=== PATIENT | female | born 1965 | race Caucasian/White ===

== ENCOUNTER → 2016-06-17 | Outpatient (CLI) | payer OTHER ==
[~2016-06-17] MED LIST: ADV500INH INH; ALBU17IN INH; CIPR500T89 PO; CLAR1TAB2 PO; CYCL10TA PO; FLAG500T PO; FLUC10TA PO; OXYC10TA12 PO; PROT1TAB2 PO; SING10TA32 PO; TYLE325T5 PO; birth control pills PO; nasocort
== END ==
LOC: M HL 08:38
PROVIDERS: ATTEND Family Medicine
DX: R73.01 Impaired fasting glucose (principal)

== ENCOUNTER → 2016-07-03 | Outpatient (REF) | payer OTHER ==
[2016-07-03 12:02] LABS: BASO % 0.4 % (0.0-1.0); EOS # 0.2 K/mm3 (0.0-0.50); LARGE UNSTAINED CELL # 0.1 K/mm3 (0.0-0.4); LARGE UNSTAINED CELL % 1.3 % (0.0-4.0); LYMPH # 1.1 K/mm3 (1.5-4.5); LYMPH % 12.5 % (24.0-44.0); MEAN CORPUSCULAR HEMOGLOBIN 30.6 pg (27.0-33.0); MEAN CORPUSCULAR HGB CONC 33.8 g/dl (32.0-36.5); MEAN CORPUSCULAR VOLUME 90.5 fl (80.0-96.0); MONO # 0.5 K/mm3 (0.0-0.8); MONO % 5.6 % (0.0-5.0); NEUTROPHILS # 6.7 K/mm3 (1.8-7.7); NEUTROPHILS % 78.2 % (36.0-66.0); PLATELET COUNT, AUTOMATED 333 k/mm3 (150-450); WHITE BLOOD COUNT 8.5 K/mm3 (4.0-10.0)
[2016-07-03 12:17] LABS: ALBUMIN 3.5 GM/DL (3.2-5.2); ALBUMIN/GLOBULIN RATIO 1.13 (1.00-1.93); ALKALINE PHOSPHATASE 83 U/L (45-117); ALT/SGPT 22 U/L (12-78); ANION GAP 9 MEQ/L (8-16); AST/SGOT 14 U/L (15-37); BILIRUBIN,TOTAL 0.3 MG/DL (0.2-1.0); BLOOD UREA NITROGEN 15 MG/DL (7-18); CALCIUM LEVEL 9.1 MG/DL (8.5-10.1); CARBON DIOXIDE LEVEL 26 MEQ/L (21-32); CHLORIDE LEVEL 106 MEQ/L (98-107); CREATININE FOR GFR 0.68 MG/DL (0.55-1.02); GLOMERULAR FILTRATION RATE > 60.0 (>51); GLUCOSE, FASTING 102 MG/DL (70-105); SODIUM LEVEL 141 MEQ/L (136-145); TOTAL PROTEIN 6.6 GM/DL (6.4-8.2)
== END ==
LOC: M SFHCPLAZ 09:37
PROVIDERS: ATTEND Family Medicine
DX: E78.2 Mixed hyperlipidemia (principal); R73.01 Impaired fasting glucose

== ENCOUNTER → 2016-07-06 | Outpatient (CLI) | payer OTHER | LOC: M HL 08:43 | PROVIDERS: ATTEND Family Medicine | DX: R73.01 Impaired fasting glucose (principal) ==

== ENCOUNTER → 2016-07-22 | Outpatient (REF) | payer OTHER ==
[2016-07-22 11:53] LABS: BASO % 0.2 % (0.0-1.0); EOS # 0.1 K/mm3 (0.0-0.50); EOS % 0.3 % (0.0-3.0); LARGE UNSTAINED CELL # 0.1 K/mm3 (0.0-0.4); LARGE UNSTAINED CELL % 0.4 % (0.0-4.0); LYMPH # 1.7 K/mm3 (1.5-4.5); LYMPH % 7.8 % (24.0-44.0); MEAN CORPUSCULAR HEMOGLOBIN 29.7 pg (27.0-33.0); MEAN CORPUSCULAR HGB CONC 32.4 g/dl (32.0-36.5); MEAN CORPUSCULAR VOLUME 91.4 fl (80.0-96.0); MONO # 0.7 K/mm3 (0.0-0.8); MONO % 3.1 % (0.0-5.0); NEUTROPHILS # 18.7 K/mm3 (1.8-7.7); NEUTROPHILS % 88.1 % (36.0-66.0); PLATELET COUNT, AUTOMATED 333 k/mm3 (150-450); WHITE BLOOD COUNT 21.2 K/mm3 (4.0-10.0)
[2016-07-22 12:19] LABS: ALBUMIN 3.4 GM/DL (3.2-5.2); ALBUMIN/GLOBULIN RATIO 1.21 (1.00-1.93); ALKALINE PHOSPHATASE 72 U/L (45-117); ALT/SGPT 21 U/L (12-78); ANION GAP 12 MEQ/L (8-16); AST/SGOT 8 U/L (15-37); BILIRUBIN,TOTAL 0.7 MG/DL (0.2-1.0); BLOOD UREA NITROGEN 18 MG/DL (7-18); CARBON DIOXIDE LEVEL 25 MEQ/L (21-32); CHLORIDE LEVEL 104 MEQ/L (98-107); CREATININE FOR GFR 0.79 MG/DL (0.55-1.02); GLOMERULAR FILTRATION RATE > 60.0 (>51); GLUCOSE, FASTING 144 MG/DL (70-105); POTASSIUM SERUM 3.8 MEQ/L (3.5-5.1); SODIUM LEVEL 141 MEQ/L (136-145); TOTAL PROTEIN 6.2 GM/DL (6.4-8.2)
== END ==
LOC: M SFHCPLAZ 10:25
PROVIDERS: ATTEND Nurse Practitioner Family
DX: K57.92 Diverticulitis of intestine, part unspecified, without perforation or abscess without bleeding (principal)

== ENCOUNTER → 2016-07-22 | Outpatient (CLI) | payer OTHER ==
--- NOTE | 2016-07-22 12:55 | REP ---
CT abdomen pelvis without IV or bowel contrast: Comparison is 12/30/2014. There are multiple diverticula in the descending colon and sigmoid colon. There is pericolonic inflammation of the sigmoid colon compatible with diverticulitis. This is in a similar location as on the comparison study. There is no pericolonic abscess. There is no pneumoperitoneum. There is no ascites. The visualized lung delatorre are unremarkable. The unenhanced hepatic parenchyma, gallbladder, pancreas, spleen, adrenals and kidneys are unremarkable except for a nonobstructive calculus in the lower pole of the right kidney, unchanged. The abdominal aorta, bowel and mesentery are otherwise unremarkable. Pelvis: The uterus and adnexa are unremarkable except for inflammatory changes in the sigmoid colon. There is a pessary in the vaginal vault. The bladder is unremarkable. There is no pelvic adenopathy or ascites. Impression: Sigmoid colon diverticulitis without abscess, no pneumoperitoneum or ascites. There is a nonobstructive calculus in the right kidney. There is a pessary in the vaginal vault. Signed by Olman Ruano MD 07/22/2016 12:46 P
== END ==
LOC: M RAD 11:51
PROVIDERS: ATTEND Nurse Practitioner Family
DX: R10.9 Unspecified abdominal pain (principal)

== ENCOUNTER → 2016-07-23 | Outpatient (REF) | payer OTHER ==
[2016-07-23 16:03] LABS: EOS % 0.2 % (0.0-3.0); LARGE UNSTAINED CELL # 0.1 K/mm3 (0.0-0.4); LARGE UNSTAINED CELL % 0.6 % (0.0-4.0); LYMPH # 0.5 K/mm3 (1.5-4.5); MEAN CORPUSCULAR HEMOGLOBIN 29.9 pg (27.0-33.0); MEAN CORPUSCULAR HGB CONC 32.3 g/dl (32.0-36.5); MEAN CORPUSCULAR VOLUME 92.5 fl (80.0-96.0); MONO # 0.4 K/mm3 (0.0-0.8); MONO % 2.6 % (0.0-5.0); NEUTROPHILS # 15.1 K/mm3 (1.8-7.7); NEUTROPHILS % 93.5 % (36.0-66.0); PLATELET COUNT, AUTOMATED 306 k/mm3 (150-450); RED CELL DISTRIBUTION WIDTH 13.2 % (11.5-14.5); WHITE BLOOD COUNT 16.2 K/mm3 (4.0-10.0)
== END ==
LOC: M SFHCPLAZ 14:21
PROVIDERS: ATTEND Nurse Practitioner Family
DX: K57.92 Diverticulitis of intestine, part unspecified, without perforation or abscess without bleeding (principal)

== ENCOUNTER 2016-07-29 15:17 | Emergency (ER) | payer OTHER ==
[~2016-07-29] VITALS: Ht 157.5 cm; Wt 103.4 kg
[~2016-07-29 15:17] MED LIST changes: -AMMO12CR4 EXT; -BREO1INH3 INH; -COLA100C PO; -DRIS50002 PO; -JOLETAB PO; -METF500T4 PO; -NASA1SPR; -VICKLIQ PO; -[UNRECOGNIZED DRUG - CODE] PO
[2016-07-29] MEDS ORDERED: GASTROGRAFIN SOLUTION 30ML (Q9963) As Ordered ONE (16:45)
[2016-07-29] MEDS ORDERED: ONDANSETRON 4MG/2ML VIAL (J2405) As Ordered ONE (16:45)
[2016-07-29 17:14] LABS: BASO % 0.2 % (0.0-1.0); EOS % 0.4 % (0.0-3.0); LARGE UNSTAINED CELL # 0.1 K/mm3 (0.0-0.4); LARGE UNSTAINED CELL % 0.7 % (0.0-4.0); LYMPH # 0.5 K/mm3 (1.5-4.5); LYMPH % 4.4 % (24.0-44.0); MEAN CORPUSCULAR HEMOGLOBIN 29.9 pg (27.0-33.0); MEAN CORPUSCULAR HGB CONC 32.5 g/dl (32.0-36.5); MEAN CORPUSCULAR VOLUME 91.8 fl (80.0-96.0); MONO # 0.2 K/mm3 (0.0-0.8); MONO % 1.8 % (0.0-5.0); NEUTROPHILS # 10.8 K/mm3 (1.8-7.7); NEUTROPHILS % 92.5 % (36.0-66.0); PLATELET COUNT, AUTOMATED 409 k/mm3 (150-450); RED CELL DISTRIBUTION WIDTH 13.2 % (11.5-14.5); WHITE BLOOD COUNT 11.6 K/mm3 (4.0-10.0)
[2016-07-29 17:22] LABS: INR 1.01
[2016-07-29 17:29] LABS: ALBUMIN 3.2 GM/DL (3.2-5.2); ALKALINE PHOSPHATASE 97 U/L (45-117); ALT/SGPT 123 U/L (12-78); AMYLASE 48 U/L (25-115); ANION GAP 7 MEQ/L (8-16); AST/SGOT 95 U/L (15-37); BILIRUBIN,DIRECT 0.1 MG/DL (0.0-0.2); BILIRUBIN,TOTAL 0.2 MG/DL (0.2-1.0); BLOOD UREA NITROGEN 19 MG/DL (7-18); CALCIUM LEVEL 8.7 MG/DL (8.5-10.1); CARBON DIOXIDE LEVEL 28 MEQ/L (21-32); CHLORIDE LEVEL 105 MEQ/L (98-107); CREATININE FOR GFR 0.77 MG/DL (0.55-1.02); GLOMERULAR FILTRATION RATE > 60.0 (>51); GLUCOSE, FASTING 169 MG/DL (70-105); POTASSIUM SERUM 4.2 MEQ/L (3.5-5.1); SODIUM LEVEL 140 MEQ/L (136-145); TOTAL PROTEIN 7.2 GM/DL (6.4-8.2)
[2016-07-29] MEDS ORDERED: DRIS50002 PO (17:51)
[2016-07-29] MEDS ORDERED: METF500T4 PO (17:51)
[2016-07-29] MEDS ORDERED: AMMO12CR4 EXT (17:51)
[2016-07-29] MEDS ORDERED: NASA1SPR (17:51)
[2016-07-29] MEDS ORDERED: VICKLIQ PO (17:51)
[2016-07-29] MEDS ORDERED: [UNRECOGNIZED DRUG - CODE] PO (17:51)
[2016-07-29] MEDS ORDERED: COLA100C PO (17:51)
[2016-07-29] MEDS ORDERED: BREO1INH3 INH (17:51)
[2016-07-29] MEDS ORDERED: JOLETAB PO (17:51)
[2016-07-29] MEDS ORDERED: ISOVUE-370 76% 100ML VIAL (Q9967) As Ordered ONE (18:11)
--- NOTE | 2016-07-29 19:15 | EDDOCDS ---
Physician Documentation [facility] Name: Shea Garcia Age: 51 yrs Sex: Female : 1965 Arrival Date: 07/29/2016 Time: 15:17 Bed 12 Private MD: Get Davies E. Disposition: 07/29/16 19:01 Discharged to Home/Self Care. Impression: Diverticulitis of large intestine with perforation and abscess without bleeding. - Condition is Stable. - Discharge Instructions: Diverticulitis, Peritonitis. - Medication Reconciliation, Local Pharmacy Hours, Work Release Form - 1 day form. - Follow up: Get Davies; When: 1 week; Reason: Recheck today's complaints, Continuance of care. Follow up: Olman Roa DO; When: Tomorrow; Reason: Further diagnostic work-up, Continuance of care. - Problem is an ongoing problem. - Symptoms are unchanged. - Notes: continue present antibiotics return any problems Historical: - Allergies: Dicyclomine; Amoxicillin; Augmentin; - Home Meds: 1. Cipro 500 mg Oral tab 1 tab every 12 hours 10 days, pt is on day 7 of this medication 2. metronidazole 500 mg Oral tab 1 tab 3 times per day - PMHx: Diverticulitis; - PSHx: Bladder suspension; - Social history: Smoking status: Patient states former smoker of tobacco. No barriers to communication noted, The patient speaks fluent Tajik. - Family history: Not pertinent. - : The pt / caregiver states he / she is not on anticoagulants. Home medication list is obtained from the patient. - Exposure Risk Screening:: None identified. PURCHASING/RECEIVING: 07/29 15:29 LMP 07/08/2016 ms18 Vital Signs: 15:19 BP 138 / 87; Pulse 73; Resp 18 S; Temp 97.3(O); Pulse Ox 95% on R/A; Weight 103.42 kg / gr2 228 lbs (R); Height 5 ft. 2 in. (157.48 cm) (R); Pain 2/10; 18:32 BP 128 / 85; Pulse 71; Resp 16; Pulse Ox 98% on R/A; Pain 0/10; ml6 19:11 Temp 97.8(O); tm5 15:19 Body Mass Index 41.70 (103.42 kg, 157.48 cm) gr2 MDM: 16:36 IV Saline Lock ordered. ke 16:36 Undress patient appropriately for examination ordered. ke 16:36 Ondansetron 4 mg IVP once ordered. ke 16:37 Amylase Ordered. EDMS 16:37 Basic Metabolic Profile Ordered. EDMS 16:37 CBC with Diff Ordered. EDMS 16:37 Lipase Ordered. EDMS 16:37 Liver Profile Ordered. EDMS 16:37 Prothrombin Time Profile\E\INR Ordered. EDMS 16:37 CT ABD & PELVIS: IV and Oral Contrast Ordered. EDMS 16:37 NOTHING BY MOUTH+DIET ordered. EDMS 16:39 BED REQUEST+ADM ordered. EDMS 17:29 Financial registration complete. gb 17:32 Basic Metabolic Profile Reviewed. ke 17:32 CBC with Diff Reviewed. ke 17:32 Liver Profile Reviewed. ke 17:32 Amylase Reviewed. ke 17:32 Lipase Reviewed. ke 17:32 Prothrombin Time Profile\E\INR Reviewed. ke 17:37 [facility] Payment Agreement was scanned into [employer] and attached to record. gb Administered Medications: 16:40 Drug: Ondansetron 4 mg [ondansetron HCl 2 mg/mL intravenous solution (2 mL)] Route: ml6 IVP; Site: right antecubital; Signatures: Dispatcher [employer] EDMS Neyda Lopez, Reg Reg gb Roddy Frazier, OPTOMETRIC COORDINATOR OPTOMETRIC COORDINATOR Charisse Pena,RN RN ms18 Valentina Headley,BRENDA RN tm5 Chato Guzman RN ml6 The chart was reviewed and I authenticate all verbal orders and agree with the evaluation and treatment provided.Attachments: 17:37 [facility] Payment Agreement gb MTDD
--- NOTE | 2016-07-29 19:15 | EDDOCDS ---
Nurse's Notes [facility] Name: Shea Garcia Age: 51 yrs Sex: Female : 1965 Arrival Date: 07/29/2016 Time: 15:17 Bed 12 Private MD: Get Davies E. Diagnosis: Diverticulitis of large intestine with perforation and abscess without bleeding Presentation: 07/29 15:22 Presenting complaint: Patient states: that she had a chest xray today and the medical ms18 staff stated that they noticed 3 abnormalities in her bowels. She was told to come straight to the ER because they thought she "perforated bowels". Adult Sepsis Screening: The patient does not have new or worsening altered mentation. Patient's respiratory rate is less than 22. Systolic blood pressure is greater than 100. Patient has a qSOFA score of 0- Negative Sepsis Screen. Suicide/Homicide risk assessment- the patient denies having any suicidal and/or homicidal ideations and does not present with any other emotional, behavioral or mental health complaints. Status: Patient is not a director emergency services or dependent. Transition of care: patient was not received from another setting of care. 15:22 Acuity: SORAIDA Level 3 ms18 15:22 Method Of Arrival: Walkin/Carried/Asstd ms18 Triage Assessment: 15:27 General: Appears in no apparent distress, comfortable, Behavior is appropriate for age, ms18 cooperative. Pain: Location: left low back, right lower quadrant and left lower quadrant Pain currently is 3 out of 10 on a pain scale. HIV screening NA for this visit Offered previously. Neurological: Level of Consciousness is awake, alert, obeys commands, Oriented to person, place, time. Respiratory: Airway is patent Respiratory effort is even, unlabored. GI: Abdomen is obese, Denies diarrhea, nausea, vomiting. Derm: Skin is pink, warm & dry. 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 Cipro 500 mg Oral tab 1 tab every 12 hours 10 days, pt is on day 7 of this medication 2. metronidazole 500 mg Oral tab 1 tab 3 times per day - PMHx: Diverticulitis; - PSHx: Bladder suspension; - Social history: Smoking status: Patient states former smoker of tobacco. No barriers to communication noted, The patient speaks fluent Fijian. - Family history: Not pertinent. - : The pt / caregiver states he / she is not on anticoagulants. Home medication list is obtained from the patient. - Exposure Risk Screening:: None identified. Screenin:33 Screening information is obtained from the patient. Fall risk: No risks identified. ml6 Assistance ADL's: requires no assistance with activities of daily living. Abuse/DV Screen: The patient / caregiver reports he/she is: not in a situation that causes fear, pain or injury. Nutritional screening: No deficits noted. Advance Directives: Currently, there is no health care proxy. home support is adequate. Assessment: 15:30 General: Appears in no apparent distress, comfortable, Behavior is appropriate for age, ml6 cooperative. Pain: Denies pain. Neurological: No deficits noted. Level of Consciousness is awake, alert, Oriented to person, place, time. Cardiovascular: No deficits noted. Capillary refill < 3 seconds is brisk in bilateral fingers toes Heart tones S1 S2 present Edema is absent. Pulses are all present. Respiratory: No deficits noted. Airway is patent Respiratory effort is even, unlabored, Respiratory pattern is regular, symmetrical, Breath sounds are clear bilaterally. GI: No deficits noted. 16:30 Reassessment: Patient appears in no apparent distress at this time. Patient denies pain ml6 at this time. Patient states feeling better. Patient states symptoms have improved. patient denies pain or discomfort. 19:11 Reassessment: Patient appears in no apparent distress at this time. Patient denies pain tm5 at this time. Patient states feeling better. Patient states symptoms have improved. pt asking to speak to the doctor that took care of her, she has more questions about her diagnosis, SUPERVISOR HEADING Karin aware that pt would like to speak to him. Vital Signs: 15:19 BP 138 / 87; Pulse 73; Resp 18 S; Temp 97.3(O); Pulse Ox 95% on R/A; Weight 103.42 kg gr2 (R); Height 5 ft. 2 in. (157.48 cm) (R); Pain 2/10; 18:32 BP 128 / 85; Pulse 71; Resp 16; Pulse Ox 98% on R/A; Pain 0/10; ml6 19:11 Temp 97.8(O); tm5 15:19 Body Mass Index 41.70 (103.42 kg, 157.48 cm) gr2 Vitals: 15:19 Log In Time: July 29, 2016 at 15:19. gr2 ED Course: 15:18 Patient visited by Edgar Quinones. gr2 15:18 Patient moved to Waiting gr2 15:19 Get Davies is Private Physician. gr2 15:21 Patient visited by Edgar Quinones. gr2 15:21 Patient moved to Pre RCE gr2 15:25 Triage Initiated ms18 15:30 Inserted peripheral IV: 18gauge IV in right antecubital area and blood collected. ml6 Patient tolerated the procedure well. Labs drawn. (by ED staff). 16:12 Patient moved to 12 [facility] 16:13 [facility]. ke 16:13 Patient visited by Roddy Frazier FNP. ke 16:13 Patient visited by Roddy Frazier FNP. ke 16:38 Patient visited by Roddy Frazier FNP. ke 17:09 Patient visited by Roddy Frazier FNP. ke 17:32 Patient visited by Roddy Frazier FNP. ke 17:37 [facility] Payment Agreement was scanned into [employer] and attached to record. gb 17:59 Patient visited by Roddy Frazier FNP. ke 18:30 Patient visited by oRddy Frazier FNP. ke 18:33 The patient / caregiver is instructed regarding the plan of care and ED course. ml6 18:59 Patient visited by Roddy Frazier FNP. ke 19:00 Get Davies is Referral Physician. ke 19:00 Olman Roa DO is Referral Physician. ke 19:02 Report received from Guido Ernst RN, assumed care of pt at this time. tm5 19:11 Patient visited by Valentina Headley RN. tm5 19:11 Discontinued lock intact, bleeding controlled, pressure dressing applied, No tm5 redness/swelling at site. No procedures done that require assistance. Administered Medications: 16:40 Drug: Ondansetron 4 mg [ondansetron HCl 2 mg/mL intravenous solution (2 mL)] Route: ml6 IVP; Site: right antecubital; Order Results: Lab Order: Amylase; SPEC'M 07/29/16 16:52 Test: AMYLASE; Value: 48; Range: 25-115; Units: U/L; Status: F Lab Order: Basic Metabolic Profile; SPEC'07/29/16 16:52 Test: GLUCOSE, FASTING; Value: 169; Range: 70-105; Abnormal: Above high normal; Units: MG/DL; Status: F Test: BLOOD UREA NITROGEN; Value: 19; Range: 7-18; Abnormal: Above high normal; Units: MG/DL; Status: F Test: CREATININE FOR GFR; Value: 0.77; Range: 0.55-1.02; Units: MG/DL; Status: F Test: GLOMERULAR FILTRATION RATE; Value: > 60.0; Range: >51; Status: F Test: SODIUM LEVEL; Value: 140; Range: 136-145; Units: MEQ/L; Status: F Test: POTASSIUM SERUM; Value: 4.2; Range: 3.5-5.1; Units: MEQ/L; Status: F Test: CHLORIDE LEVEL; Value: 105; Range: 98-107; Units: MEQ/L; Status: F Test: CARBON DIOXIDE LEVEL; Value: 28; Range: 21-32; Units: MEQ/L; Status: F Test: ANION GAP; Value: 7; Range: 8-16; Abnormal: Below low normal; Units: MEQ/L; Status: F Test: CALCIUM LEVEL; Value: 8.7; Range: 8.5-10.1; Units: MG/DL; Status: F Test Note: ; Units are mL/min/1.73 m2 Chronic Kidney Disease Staging per NKF: Stage I & II GFR >=60 Normal to Mildly Decreased Stage III GFR 30-59 Moderately Decreased Stage IV GFR 15-29 Severely Decreased Stage V GFR <15 Very Little GFR Left ESRD GFR <15 on AMBULANCE MECHANIC Lab Order: CBC with Diff; SPEC'07/29/16 16:52 Test: WHITE BLOOD COUNT; Value: 11.6; Range: 4.0-10.0; Abnormal: Above high normal; Units: K/mm3; Status: F Test: RED BLOOD COUNT; Value: 4.06; Range: 4.00-5.40; Units: M/mm3; Status: F Test: HEMOGLOBIN; Value: 12.1; Range: 12.0-16.0; Units: g/dl; Status: F Test: HEMATOCRIT; Value: 37.2; Range: 36.0-47.0; Units: %; Status: F Test: MEAN CORPUSCULAR VOLUME; Value: 91.8; Range: 80.0-96.0; Units: fl; Status: F Test: MEAN CORPUSCULAR HEMOGLOBIN; Value: 29.9; Range: 27.0-33.0; Units: pg; Status: F Test: MEAN CORPUSCULAR HGB CONC; Value: 32.5; Range: 32.0-36.5; Units: g/dl; Status: F Test: RED CELL DISTRIBUTION WIDTH; Value: 13.2; Range: 11.5-14.5; Units: %; Status: F Test: PLATELET COUNT, AUTOMATED; Value: 409; Range: 150-450; Units: k/mm3; Status: F Test: NEUTROPHILS %; Value: 92.5; Range: 36.0-66.0; Abnormal: Above high normal; Units: %; Status: F Test: LYMPH %; Value: 4.4; Range: 24.0-44.0; Abnormal: Below low normal; Units: %; Status: F Test: MONO %; Value: 1.8; Range: 0.0-5.0; Units: %; Status: F Test: EOS %; Value: 0.4; Range: 0.0-3.0; Units: %; Status: F Test: BASO %; Value: 0.2; Range: 0.0-1.0; Units: %; Status: F Test: LARGE UNSTAINED CELL %; Value: 0.7; Range: 0.0-4.0; Units: %; Status: F Test: NEUTROPHILS #; Value: 10.8; Range: 1.8-7.7; Abnormal: Above high normal; Units: K/mm3; Status: F Test: LYMPH #; Value: 0.5; Range: 1.5-4.5; Abnormal: Below low normal; Units: K/mm3; Status: F Test: MONO #; Value: 0.2; Range: 0.0-0.8; Units: K/mm3; Status: F Test: EOS #; Value: 0.0; Range: 0.0-0.50; Units: K/mm3; Status: F Test: BASO #; Value: 0.0; Range: 0.0-0.2; Units: K/mm3; Status: F Test: LARGE UNSTAINED CELL #; Value: 0.1; Range: 0.0-0.4; Units: K/mm3; Status: F Lab Order: Lipase; [facility] 07/29/16 16:52 Test: LIPASE; Value: 269; Range: 73-393; Units: U/L; Status: F Lab Order: Liver Profile; [facility] 07/29/16 16:52 Test: AST/SGOT; Value: 95; Range: 15-37; Abnormal: Above high normal; Units: U/L; Status: F Test: ALT/SGPT; Value: 123; Range: 12-78; Abnormal: Above high normal; Units: U/L; Status: F Test: ALKALINE PHOSPHATASE; Value: 97; Range: 45-117; Units: U/L; Status: F Test: BILIRUBIN,TOTAL; Value: 0.2; Range: 0.2-1.0; Units: MG/DL; Status: F Test: BILIRUBIN,DIRECT; Value: 0.1; Range: 0.0-0.2; Units: MG/DL; Status: F Test: TOTAL PROTEIN; Value: 7.2; Range: 6.4-8.2; Units: GM/DL; Status: F Test: ALBUMIN; Value: 3.2; Range: 3.2-5.2; Units: GM/DL; Status: F Test: ALBUMIN/GLOBULIN RATIO; Value: 0.80; Range: 1.00-1.93; Abnormal: Below low normal; Status: F Lab Order: Prothrombin Time Profile\\E\\INR; [facility] 07/29/16 16:52 Test: PROTHROMBIN TIME; Value: 13.4; Range: 12.3-14.5; Units: SECONDS; Status: F Test: INR; Value: 1.01; Status: F Test Note: ; THERAPUTIC HUMAN INR VALUES INDICATIONS NORMAL RANGES PROPHYLAXIS/TREATMENT OF: VENOUS THROMBOSIS 2.0-3.0 PULMONARY EMBOLISM 2.0-3.0 PREVENTION OF SYSTEMIC EMBOLISM FROM: TISSUE HEART VALVES 2.0-3.0 ACUTE MYOCARDIAL INFARCTION 2.0-3.0 VALVULAR HEART DISEASE 2.0-3.0 ATRIAL FIBRILLATION 2.0-3.0 MECHANICAL VALVES(HIGH RISK) 2.5-3.5 RECURRENT MYOCARDIAL INFARCTION 2.5-3.5 Outcome: 18:31 CT Study completed. Property :Personal belongings accompany Pt. 6 18:34 Discharge Assessment: patient administered narcotics - no. ml6 19:01 Discharge ordered by Provider. ke 19:11 The following High Risk Discharge criteria are identified: None. Discharged to home tm5 ambulatory, with family. Condition: good Condition: stable Condition: improved. Discharge instructions given to patient, Instructed on discharge instructions, follow up and referral plans. medication usage, Demonstrated understanding of instructions, medications, Pt was receptive of discharge instructions/ teaching. Work note provided to patient. 19:14 Patient left the ED. tm5 Signatures: Janice Suarez, RN RN Neyda Gauthier, Roddy Roper, TAPPER HELPER TAPPER HELPER Chato Merida RN RN ml6 Edgar Quinones 2 Charisse Chatterjee,RN RN ms18 Valentina Headley,RN RN tm5 [facility]
--- NOTE | 2016-07-30 08:21 | REP ---
Clinical: Pneumoperitoneum on x-ray. Comparison: 07/22/2016. Technique: Axial contrast enhanced images from the lung bases to the pubic symphysis using oral and 100 ml Isovue 370 intravenous contrast material with coronal and sagittal re-formations. Findings: Small amount of pneumoperitoneum consistent with perforation is appreciated within the abdomen and pelvis. Inflammatory changes involving the left myranda pelvis include mural thickening and pericolonic stranding of the mid sigmoid colon with evidence for acute diverticulitis as well as a 4.8 cm collection with air-fluid level in the region of the left adnexa inseparable from both the adjacent area of sigmoid diverticulitis as well as left adnexa (images 99 - 125). Differential diagnosis includes perforated sigmoid diverticulitis and/or left tubal ovarian abscess. There is no associated bowel obstruction and the remainder of the small and large bowel is grossly unremarkable. The uterus and right adnexa appear normal. Small amount of fluid extends into the deep pelvis. Liver, spleen, pancreas, gallbladder, bilateral adrenal glands and kidneys are normal. Pelvis again demonstrates inflammatory changes in the left myranda pelvis as described above as well as normal partially collapsed bladder. Pessary in satisfactory position. No significant adenopathy. Musculoskeletal structures are intact. Lung bases are clear. Impression: Pneumoperitoneum with significant inflammatory changes involving the left myranda pelvis as described above. Differential diagnosis includes perforated sigmoid diverticulitis with adjacent abscess collection and/or associated left tubal ovarian abscess. No associated bowel obstruction. Signed by Gerardo Rosenbaum MD 07/30/2016 08:12 A
--- NOTE | 2016-07-30 15:12 | CR ---
DATE OF CONSULTATION: 07/29/2016 CHIEF COMPLAINT: Abnormal chest x-ray. HISTORY OF PRESENT ILLNESS: The patient is a 51-year-old female who came into the emergency room last evening due to having an abnormal chest x-ray. She was diagnosis of diverticulitis about 2 years ago. She has not had any problems since then up until last Wednesday when she went to her doctor and after examination he started her on some Cipro and Flagyl and told her that she probably had a new episode of diverticulitis. She then had a chest x-ray done yesterday, which showed free air underneath the diaphragm so she was called by her doctor and told to come straight to the emergency room. In the emergency room, she denies any nausea, vomiting. No fever, sweats or chills. No abdominal pain at all. No problems with bowel movements. No blood in her stool. The only abnormal finding was this chest x-ray. She had repeat laboratories, as well as a CT scan done in the emergency room. I came to evaluate her prior to the labs and the CT scan being completed, however, I was unimpressed with her abdomen. She was completely nontender, but we did have a long discussion about diverticulosis, diverticulitis, the causes and treatments for it, including surgical options and then waited for the lab results to return. PAST MEDICAL HISTORY: Diverticulitis. PAST SURGICAL HISTORY: Bladder suspension. SOCIAL HISTORY: Denies any current drug, alcohol, tobacco abuse. FAMILY HISTORY: Noncontributory. ALLERGIES: DICYCLOMINE, AMOXICILLIN, AUGMENTIN. HOME MEDICATIONS: Currently on Cipro and Flagyl. REVIEW OF SYSTEMS: Pertinent positives and negatives as stated in the history of present illness. PHYSICAL EXAMINATION: GENERAL: Alert and oriented times three times three. No acute distress. VITAL SIGNS: Blood pressure 138/87, pulse 73, respirations 18, temperature 97.3, pulse oximetry 95% on room air. HEENT: Pupils equal round react to light accommodation. HEART: S1, S2 regular rate and rhythm. LUNGS: Clear to auscultation bilaterally. ABDOMEN: Soft, nontender, nondistended. Bowel sounds positive. EXTREMITIES: No clubbing, cyanosis or edema. LABORATORIES: White count was 21.2 last week on the . It was down to 11.6 today. Hemoglobin 12.1, platelets 409, INR 1.01, potassium 4.2. IMAGING STUDIES: CT of the abdomen and pelvis from today shows pneumoperitoneum with significant inflammatory changes involving the left hemipelvis. Differential diagnosis includes perforated sigmoid diverticulitis with adjacent abscess collection and/or associated left tubal ovarian abscess. No associated bowel obstruction. ASSESSMENT AND PLAN: The patient is a 51-year-old female with acute diverticulitis with localized perforation and possible early abscess formation. Currently, she is completely 100% asymptomatic. No pain. No fevers. No problems with bowel movements. She has been on outpatient Cipro and Flagyl already for the past week and her white count is only 11. Since she is asymptomatic at this time, the recommendation is to keep her on oral antibiotics. I will see her in the office in a week and see how she is feeling. We will discuss possible drainage of the abscess if her symptoms return. Otherwise, we will discuss possible elective surgery in the future. At this time, there is no reason for inpatient admission since her white count is normal. The patient agrees. She can call my office with any questions and followup with me in the office next week.
--- NOTE | 2016-07-31 20:15 | EDDOCDS ---
Physician Documentation [facility] Name: Shea Garcia Age: 51 yrs Sex: Female : 1965 Arrival Date: 07/29/2016 Time: 15:17 Bed 12 Private MD: Get Davies E. Disposition: 07/29/16 19:01 Discharged to Home/Self Care. Impression: Diverticulitis of large intestine with perforation and abscess without bleeding. - Condition is Stable. - Discharge Instructions: Diverticulitis, Peritonitis. - Medication Reconciliation, Local Pharmacy Hours, Work Release Form - 1 day form. - Follow up: Get Davies; When: 1 week; Reason: Recheck today's complaints, Continuance of care. Follow up: Olman Roa DO; When: Tomorrow; Reason: Further diagnostic work-up, Continuance of care. - Problem is an ongoing problem. - Symptoms are unchanged. - Notes: continue present antibiotics return any problems Historical: - Allergies: Dicyclomine; Amoxicillin; Augmentin; - Home Meds: 1. Cipro 500 mg Oral tab 1 tab every 12 hours 10 days, pt is on day 7 of this medication 2. metronidazole 500 mg Oral tab 1 tab 3 times per day - PMHx: Diverticulitis; - PSHx: Bladder suspension; - Social history: Smoking status: Patient states former smoker of tobacco. No barriers to communication noted, The patient speaks fluent Taiwanese. - Family history: Not pertinent. - : The pt / caregiver states he / she is not on anticoagulants. Home medication list is obtained from the patient. - Exposure Risk Screening:: None identified. 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 2 in. (157.48 cm) (R); Pain 2/10; 18:32 BP 128 / 85; Pulse 71; Resp 16; Pulse Ox 98% on R/A; Pain 0/10; ml6 19:11 Temp 97.8(O); tm5 15:19 Body Mass Index 41.70 (103.42 kg, 157.48 cm) gr2 MDM: 16:36 IV Saline Lock ordered. ke 16:36 Undress patient appropriately for examination ordered. ke 16:36 Ondansetron 4 mg IVP once ordered. ke 16:37 Amylase Ordered. EDMS 16:37 Basic Metabolic Profile Ordered. EDMS 16:37 CBC with Diff Ordered. EDMS 16:37 Lipase Ordered. EDMS 16:37 Liver Profile Ordered. EDMS 16:37 Prothrombin Time Profile\E\INR Ordered. EDMS 16:37 CT ABD & PELVIS: IV and Oral Contrast Ordered. EDMS 16:37 NOTHING BY MOUTH+DIET ordered. EDMS 16:39 BED REQUEST+ADM ordered. EDMS 17:29 Financial registration complete. gb 17:32 Basic Metabolic Profile Reviewed. ke 17:32 CBC with Diff Reviewed. ke 17:32 Liver Profile Reviewed. ke 17:32 Amylase Reviewed. ke 17:32 Lipase Reviewed. ke 17:32 Prothrombin Time Profile\E\INR Reviewed. ke 17:37 [facility] [place] Payment Agreement was scanned into [employer] and attached to record. 07/30 10:38 T-Sheet-- Draft Copy was scanned into [employer] and attached to record. gb 10:38 Radiology Report was scanned into [employer] and attached to record. gb 16:33 ED course: dr roa involved in care of this pt. see SHEEP STICKER note. he is faxed formal ml report of ct abd/p for fu mlg. Administered Medications: 07/29 16:40 Drug: Ondansetron 4 mg [ondansetron HCl 2 mg/mL intravenous solution (2 mL)] Route: ml6 IVP; Site: right antecubital; Signatures: Dispatcher [employer] EDDE Charity Serrano MD MD ml Neyda Lopez, Reg Reg gb Roddy Frazier, PIN INSERTER REGULATOR PIN INSERTER REGULATOR Charisse Pena RN RN ms18 Valentina Haedley RN RN tm5 Chato Guzman RN ml6 The chart was reviewed and I authenticate all verbal orders and agree with the evaluation and treatment provided.Attachments: 17:37 [facility] Payment Agreement 07/30 10:38 T-Sheet-- Draft Copy gb Chart Complete MTDD
--- NOTE | 2016-07-31 20:15 | EDDOCDS ---
Physician Documentation [facility] Name: Shea Garcia Age: 51 yrs Sex: Female : 1965 Arrival Date: 07/29/2016 Time: 15:17 Bed 12 Private MD: Get Davies E. Disposition: 07/29/16 19:01 Discharged to Home/Self Care. Impression: Diverticulitis of large intestine with perforation and abscess without bleeding. - Condition is Stable. - Discharge Instructions: Diverticulitis, Peritonitis. - Medication Reconciliation, Local Pharmacy Hours, Work Release Form - 1 day form. - Follow up: Get Davies; When: 1 week; Reason: Recheck today's complaints, Continuance of care. Follow up: Olman Roa DO; When: Tomorrow; Reason: Further diagnostic work-up, Continuance of care. - Problem is an ongoing problem. - Symptoms are unchanged. - Notes: continue present antibiotics return any problems Historical: - Allergies: Dicyclomine; Amoxicillin; Augmentin; - Home Meds: 1. Cipro 500 mg Oral tab 1 tab every 12 hours 10 days, pt is on day 7 of this medication 2. metronidazole 500 mg Oral tab 1 tab 3 times per day - PMHx: Diverticulitis; - PSHx: Bladder suspension; - Social history: Smoking status: Patient states former smoker of tobacco. No barriers to communication noted, The patient speaks fluent [place] Islander. - Family history: Not pertinent. - : The pt / caregiver states he / she is not on anticoagulants. Home medication list is obtained from the patient. - Exposure Risk Screening:: None identified. 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 2 in. (157.48 cm) (R); Pain 2/10; 18:32 BP 128 / 85; Pulse 71; Resp 16; Pulse Ox 98% on R/A; Pain 0/10; ml6 19:11 Temp 97.8(O); tm5 15:19 Body Mass Index 41.70 (103.42 kg, 157.48 cm) gr2 MDM: 16:36 IV Saline Lock ordered. ke 16:36 Undress patient appropriately for examination ordered. ke 16:36 Ondansetron 4 mg IVP once ordered. ke 16:37 Amylase Ordered. EDMS 16:37 Basic Metabolic Profile Ordered. EDMS 16:37 CBC with Diff Ordered. EDMS 16:37 Lipase Ordered. EDMS 16:37 Liver Profile Ordered. EDMS 16:37 Prothrombin Time Profile\E\INR Ordered. EDMS 16:37 CT ABD & PELVIS: IV and Oral Contrast Ordered. EDMS 16:37 NOTHING BY MOUTH+DIET ordered. EDMS 16:39 BED REQUEST+ADM ordered. EDMS 17:29 Financial registration complete. gb 17:32 Basic Metabolic Profile Reviewed. ke 17:32 CBC with Diff Reviewed. ke 17:32 Liver Profile Reviewed. ke 17:32 Amylase Reviewed. ke 17:32 Lipase Reviewed. ke 17:32 Prothrombin Time Profile\E\INR Reviewed. ke 17:37 [facility] [place] Agreement was scanned into [employer] and attached to record. 07/30 10:38 T-Sheet-- Draft Copy was scanned into [employer] and attached to record. gb 10:38 Radiology Report was scanned into [employer] and attached to record. gb 16:33 ED course: dr roa involved in care of this pt. see IMAGING CENTER MANAGER note. he is faxed formal ml report of ct abd/p for fu mlg. Administered Medications: 07/29 16:40 Drug: Ondansetron 4 mg [ondansetron HCl 2 mg/mL intravenous solution (2 mL)] Route: ml6 IVP; Site: right antecubital; Signatures: Dispatcher [employer] EDNV Charity Serraon MD MD ml Neyda Lopez, Reg Reg gb Roddy Frazier, WRINGER MACHINE OPERATOR WRINGER MACHINE OPERATOR Charisse Pena RN RN ms18 Valentina Headley RN RN tm5 Chato Guzman RN ml6 The chart was reviewed and I authenticate all verbal orders and agree with the evaluation and treatment provided.Attachments: 17:37 [facility] Payment Agreement 07/30 10:38 T-Sheet-- Draft Copy gb Chart Complete MTDD
--- NOTE | 2016-07-31 20:15 | EDDOCDS ---
Nurse's Notes [facility] Name: Shea Garcia Age: 51 yrs Sex: Female : 1965 Arrival Date: 07/29/2016 Time: 15:17 Bed 12 Private MD: Get Davies E. Diagnosis: Diverticulitis of large intestine with perforation and abscess without bleeding Presentation: 07/29 15:22 Presenting complaint: Patient states: that she had a chest xray today and the medical ms18 staff stated that they noticed 3 abnormalities in her bowels. She was told to come straight to the ER because they thought she "perforated bowels". Adult Sepsis Screening: The patient does not have new or worsening altered mentation. Patient's respiratory rate is less than 22. Systolic blood pressure is greater than 100. Patient has a qSOFA score of 0- Negative Sepsis Screen. Suicide/Homicide risk assessment- the patient denies having any suicidal and/or homicidal ideations and does not present with any other emotional, behavioral or mental health complaints. Status: Patient is not a service worker or dependent. Transition of care: patient was not received from another setting of care. 15:22 Acuity: SORAIDA Level 3 ms18 15:22 Method Of Arrival: Walkin/Carried/Asstd ms18 Triage Assessment: 15:27 General: Appears in no apparent distress, comfortable, Behavior is appropriate for age, ms18 cooperative. Pain: Location: left low back, right lower quadrant and left lower quadrant Pain currently is 3 out of 10 on a pain scale. HIV screening NA for this visit Offered previously. Neurological: Level of Consciousness is awake, alert, obeys commands, Oriented to person, place, time. Respiratory: Airway is patent Respiratory effort is even, unlabored. GI: Abdomen is obese, Denies diarrhea, nausea, vomiting. Derm: Skin is pink, warm & dry. DIE TURNER: 15:29 LMP 07/08/2016 ms18 Historical: - Allergies: Dicyclomine; Amoxicillin; Augmentin; - Home Meds: 1. Cipro 500 mg Oral tab 1 tab every 12 hours 10 days, pt is on day 7 of this medication 2. metronidazole 500 mg Oral tab 1 tab 3 times per day - PMHx: Diverticulitis; - PSHx: Bladder suspension; - Social history: Smoking status: Patient states former smoker of tobacco. No barriers to communication noted, The patient speaks fluent Northern Irish. - Family history: Not pertinent. - : The pt / caregiver states he / she is not on anticoagulants. Home medication list is obtained from the patient. - Exposure Risk Screening:: None identified. Screenin:33 Screening information is obtained from the patient. Fall risk: No risks identified. ml6 Assistance ADL's: requires no assistance with activities of daily living. Abuse/DV Screen: The patient / caregiver reports he/she is: not in a situation that causes fear, pain or injury. Nutritional screening: No deficits noted. Advance Directives: Currently, there is no health care proxy. home support is adequate. Assessment: 15:30 General: Appears in no apparent distress, comfortable, Behavior is appropriate for age, ml6 cooperative. Pain: Denies pain. Neurological: No deficits noted. Level of Consciousness is awake, alert, Oriented to person, place, time. Cardiovascular: No deficits noted. Capillary refill < 3 seconds is brisk in bilateral fingers toes Heart tones S1 S2 present Edema is absent. Pulses are all present. Respiratory: No deficits noted. Airway is patent Respiratory effort is even, unlabored, Respiratory pattern is regular, symmetrical, Breath sounds are clear bilaterally. GI: No deficits noted. 16:30 Reassessment: Patient appears in no apparent distress at this time. Patient denies pain ml6 at this time. Patient states feeling better. Patient states symptoms have improved. patient denies pain or discomfort. 19:11 Reassessment: Patient appears in no apparent distress at this time. Patient denies pain tm5 at this time. Patient states feeling better. Patient states symptoms have improved. pt asking to speak to the doctor that took care of her, she has more questions about her diagnosis, THEATRE MANAGER Karin aware that pt would like to speak to him. Vital Signs: 15:19 BP 138 / 87; Pulse 73; Resp 18 S; Temp 97.3(O); Pulse Ox 95% on R/A; Weight 103.42 kg gr2 (R); Height 5 ft. 2 in. (157.48 cm) (R); Pain 2/10; 18:32 BP 128 / 85; Pulse 71; Resp 16; Pulse Ox 98% on R/A; Pain 0/10; ml6 19:11 Temp 97.8(O); tm5 15:19 Body Mass Index 41.70 (103.42 kg, 157.48 cm) gr2 Vitals: 15:19 Log In Time: July 29, 2016 at 15:19. gr2 ED Course: 15:18 Patient visited by Edgar Quinones. gr2 15:18 Patient moved to Waiting gr2 15:19 Get Davies is Private Physician. gr2 15:21 Patient visited by Edgar Quinones. gr2 15:21 Patient moved to Pre RCE gr2 15:25 Triage Initiated ms18 15:30 Inserted peripheral IV: 18gauge IV in right antecubital area and blood collected. ml6 Patient tolerated the procedure well. Labs drawn. (by ED staff). 16:12 Patient moved to 12 [facility] 16:13 Rod[facility] Frazier FNP [facility]. ke 16:13 Patient visited by Roddy Frazier FNP. ke 16:13 Patient visited by Roddy Frazier FNP. ke 16:38 Patient visited by Roddy Frazier FNP. ke 17:09 Patient visited by Roddy Frazier FNP. ke 17:32 Patient visited by Roddy Frazier FNP. ke 17:37 [facility] Payment Agreement was scanned into [employer] and attached to record. gb 17:59 Patient visited by Roddy Frazier FNP. ke 18:30 Patient visited by Roddy Frazier FNP. ke 18:33 The patient / caregiver is instructed regarding the plan of care and ED course. ml6 18:59 Patient visited by Roddy Frazier FNP. ke 19:00 Get Davies is Referral Physician. ke 19:00 Olman Roa DO is Referral Physician. ke 19:02 Report received from Guido Ernst RN, assumed care of pt at this time. tm5 19:11 Patient visited by Valentina Headley RN. tm5 19:11 Discontinued lock intact, bleeding controlled, pressure dressing applied, No tm5 redness/swelling at site. No procedures done that require assistance. 07/30 08:33 CT ABD & PELVIS: IV and Oral Contrast Returned. EDMS 10:38 T-Sheet-- Draft Copy was scanned into [employer] and attached to record. gb 10:38 Radiology Report was scanned into [employer] and attached to record. gb Administered Medications: 07/29 16:40 Drug: Ondansetron 4 mg [ondansetron HCl 2 mg/mL intravenous solution (2 mL)] Route: ml6 IVP; Site: right antecubital; Order Results: Lab Order: Amylase; SPEC'M 07/29/16 16:52 Test: AMYLASE; Value: 48; Range: 25-115; Units: U/L; Status: F Lab Order: Basic Metabolic Profile; SPEC' 07/29/16 16:52 Test: GLUCOSE, FASTING; Value: 169; Range: 70-105; Abnormal: Above high normal; Units: MG/DL; Status: F Test: BLOOD UREA NITROGEN; Value: 19; Range: 7-18; Abnormal: Above high normal; Units: MG/DL; Status: F Test: CREATININE FOR GFR; Value: 0.77; Range: 0.55-1.02; Units: MG/DL; Status: F Test: GLOMERULAR FILTRATION RATE; Value: > 60.0; Range: >51; Status: F Test: SODIUM LEVEL; Value: 140; Range: 136-145; Units: MEQ/L; Status: F Test: POTASSIUM SERUM; Value: 4.2; Range: 3.5-5.1; Units: MEQ/L; Status: F Test: CHLORIDE LEVEL; Value: 105; Range: 98-107; Units: MEQ/L; Status: F Test: CARBON DIOXIDE LEVEL; Value: 28; Range: 21-32; Units: MEQ/L; Status: F Test: ANION GAP; Value: 7; Range: 8-16; Abnormal: Below low normal; Units: MEQ/L; Status: F Test: CALCIUM LEVEL; Value: 8.7; Range: 8.5-10.1; Units: MG/DL; Status: F Test Note: ; Units are mL/min/1.73 m2 Chronic Kidney Disease Staging per NKF: Stage I & II GFR >=60 Normal to Mildly Decreased Stage III GFR 30-59 Moderately Decreased Stage IV GFR 15-29 Severely Decreased Stage V GFR <15 Very Little GFR Left ESRD GFR <15 on CREDIT COORDINATOR Lab Order: CBC with Diff; SPEC'M 07/29/16 16:52 Test: WHITE BLOOD COUNT; Value: 11.6; Range: 4.0-10.0; Abnormal: Above high normal; Units: K/mm3; Status: F Test: RED BLOOD COUNT; Value: 4.06; Range: 4.00-5.40; Units: M/mm3; Status: F Test: HEMOGLOBIN; Value: 12.1; Range: 12.0-16.0; Units: g/dl; Status: F Test: HEMATOCRIT; Value: 37.2; Range: 36.0-47.0; Units: %; Status: F Test: MEAN CORPUSCULAR VOLUME; Value: 91.8; Range: 80.0-96.0; Units: fl; Status: F Test: MEAN CORPUSCULAR HEMOGLOBIN; Value: 29.9; Range: 27.0-33.0; Units: pg; Status: F Test: MEAN CORPUSCULAR HGB CONC; Value: 32.5; Range: 32.0-36.5; Units: g/dl; Status: F Test: RED CELL DISTRIBUTION WIDTH; Value: 13.2; Range: 11.5-14.5; Units: %; Status: F Test: PLATELET COUNT, AUTOMATED; Value: 409; Range: 150-450; Units: k/mm3; Status: F Test: NEUTROPHILS %; Value: 92.5; Range: 36.0-66.0; Abnormal: Above high normal; Units: %; Status: F Test: LYMPH %; Value: 4.4; Range: 24.0-44.0; Abnormal: Below low normal; Units: %; Status: F Test: MONO %; Value: 1.8; Range: 0.0-5.0; Units: %; Status: F Test: EOS %; Value: 0.4; Range: 0.0-3.0; Units: %; Status: F Test: BASO %; Value: 0.2; Range: 0.0-1.0; Units: %; Status: F Test: LARGE UNSTAINED CELL %; Value: 0.7; Range: 0.0-4.0; Units: %; Status: F Test: NEUTROPHILS #; Value: 10.8; Range: 1.8-7.7; Abnormal: Above high normal; Units: K/mm3; Status: F Test: LYMPH #; Value: 0.5; Range: 1.5-4.5; Abnormal: Below low normal; Units: K/mm3; Status: F Test: MONO #; Value: 0.2; Range: 0.0-0.8; Units: K/mm3; Status: F Test: EOS #; Value: 0.0; Range: 0.0-0.50; Units: K/mm3; Status: F Test: BASO #; Value: 0.0; Range: 0.0-0.2; Units: K/mm3; Status: F Test: LARGE UNSTAINED CELL #; Value: 0.1; Range: 0.0-0.4; Units: K/mm3; Status: F Lab Order: Lipase; [facility] 07/29/16 16:52 Test: LIPASE; Value: 269; Range: 73-393; Units: U/L; Status: F Lab Order: Liver Profile; [facility] 07/29/16 16:52 Test: AST/SGOT; Value: 95; Range: 15-37; Abnormal: Above high normal; Units: U/L; Status: F Test: ALT/SGPT; Value: 123; Range: 12-78; Abnormal: Above high normal; Units: U/L; Status: F Test: ALKALINE PHOSPHATASE; Value: 97; Range: 45-117; Units: U/L; Status: F Test: BILIRUBIN,TOTAL; Value: 0.2; Range: 0.2-1.0; Units: MG/DL; Status: F Test: BILIRUBIN,DIRECT; Value: 0.1; Range: 0.0-0.2; Units: MG/DL; Status: F Test: TOTAL PROTEIN; Value: 7.2; Range: 6.4-8.2; Units: GM/DL; Status: F Test: ALBUMIN; Value: 3.2; Range: 3.2-5.2; Units: GM/DL; Status: F Test: ALBUMIN/GLOBULIN RATIO; Value: 0.80; Range: 1.00-1.93; Abnormal: Below low normal; Status: F Lab Order: Prothrombin Time Profile\\E\\INR; [facility] 07/29/16 16:52 Test: PROTHROMBIN TIME; Value: 13.4; Range: 12.3-14.5; Units: SECONDS; Status: F Test: INR; Value: 1.01; Status: F Test Note: ; THERAPUTIC HUMAN INR VALUES INDICATIONS NORMAL RANGES PROPHYLAXIS/TREATMENT OF: VENOUS THROMBOSIS 2.0-3.0 PULMONARY EMBOLISM 2.0-3.0 PREVENTION OF SYSTEMIC EMBOLISM FROM: TISSUE HEART VALVES 2.0-3.0 ACUTE MYOCARDIAL INFARCTION 2.0-3.0 VALVULAR HEART DISEASE 2.0-3.0 ATRIAL FIBRILLATION 2.0-3.0 MECHANICAL VALVES(HIGH RISK) 2.5-3.5 RECURRENT MYOCARDIAL INFARCTION 2.5-3.5 Radiology Order: CT ABD & PELVIS: IV and Oral Contrast Test: CT ABD & PELVIS: IV and Oral Contrast REASON FOR EXAMINATION: perforated bowel; Clinical: Pneumoperitoneum on x-ray.; ; Comparison: 07/22/2016.; ; Technique: Axial contrast enhanced images from the lung bases to the pubic; symphysis using oral and 100 ml Isovue 370 intravenous contrast material with; coronal and sagittal re-formations.; ; Findings:; Small amount of pneumoperitoneum consistent with perforation is appreciated; within the abdomen and pelvis. Inflammatory changes involving the left myranda; pelvis include mural thickening and pericolonic stranding of the mid sigmoid; colon with evidence for acute diverticulitis as well as a 4.8 cm collection with; air-fluid level in the region of the left adnexa inseparable from both the; adjacent area of sigmoid diverticulitis as well as left adnexa (images 99 - 125).; Differential diagnosis includes perforated sigmoid diverticulitis and/or left; tubal ovarian abscess. There is no associated bowel obstruction and the; remainder of the small and large bowel is grossly unremarkable. The uterus and; right adnexa appear normal. Small amount of fluid extends into the deep pelvis.; ; Liver, spleen, pancreas, gallbladder, bilateral adrenal glands and kidneys are; normal. Pelvis again demonstrates inflammatory changes in the left myranda pelvis; as described above as well as normal partially collapsed bladder. Pessary in; satisfactory position. No significant adenopathy. Musculoskeletal structures; are intact. Lung bases are clear.; ; Impression:; Pneumoperitoneum with significant inflammatory changes involving the left myranda; pelvis as described above. Differential diagnosis includes perforated sigmoid; diverticulitis with adjacent abscess collection and/or associated left tubal; ovarian abscess. No associated bowel obstruction.; ; ; Signed by; Gerardo Rosenbaum MD 07/30/2016 08:12 A; Outcome: 18:31 CT Study completed. Property :Personal belongings accompany Pt. ml6 18:34 Discharge Assessment: patient administered narcotics - no. ml6 19:01 Discharge ordered by Provider. sarita 19:11 The following High Risk Discharge criteria are identified: None. Discharged to home tm5 ambulatory, with family. Condition: good Condition: stable Condition: improved. Discharge instructions given to patient, Instructed on discharge instructions, follow up and referral plans. medication usage, Demonstrated understanding of instructions, medications, Pt was receptive of discharge instructions/ teaching. Work note provided to patient. 19:14 Patient left the ED. tm5 Signatures: Dispatcher [employer] EDMS Janice Suarez, RN RN mcp Neyda Lopez, Reg Reg Roddy Stoner, PIERCING MILL OPERATOR PIERCING MILL OPERATOR Chato Merida RN RN ml6 Edgar Quinones gr2 Charisse Chatterjee,BRENDA RN ms18 Valentina Headley,RN RN tm5 Chart Complete MTDModesto
== END 2016-07-29 19:14 | disposition home or self-care (01) ==
LOC: M ED 15:17
DX: K57.20 Diverticulitis of large intestine with perforation and abscess without bleeding (principal); Z87.891 Personal history of nicotine dependence; Z79.899 Other long term (current) drug therapy; Z88.0 Allergy status to penicillin; Z88.8 Allergy status to other drugs, medicaments and biological substances
CPT/HCPCS: 36415; 74177; 80048; 80076; 82150; 83690; 85025; 85610; 96374; 99284; J2405; Q9963; Q9967

== ENCOUNTER → 2016-07-29 | Outpatient (CLI) | payer OTHER ==
[~2016-07-29] MED LIST changes: +AMMO12CR4 EXT; +BREO1INH3 INH; +COLA100C PO; +DRIS50002 PO; +JOLETAB PO; +METF500T4 PO; +NASA1SPR; +VICKLIQ PO; +[UNRECOGNIZED DRUG - CODE] PO
--- NOTE | 2016-07-29 15:34 | REP ---
CHEST, TWO VIEWS: HISTORY: Cough. COMPARISON: Chest x-ray 07/03/[address] abdomen 07/22/2016. The lungs are clear. The heart is normal in size. The pulmonary vasculature is normal in appearance. The bony structure is intact. A small amount of pneumoperitoneum is present. This is likely due to rupture of the sigmoid colon secondary to sigmoid colon diverticulitis seen in the recent CT examination. IMPRESSION: 1. The lungs are clear. 2. There is a small amount of pneumoperitoneum. This is likely due to rupture of the sigmoid colon secondary to diverticulitis seen in the recent CT examination. Results were discussed with Cyndi Banks at 2:35 p.m. this date. Signed by Keith Kebede MD 07/29/2016 03:50 P
== END ==
LOC: M SMT 11:52
PROVIDERS: ATTEND Nurse Practitioner Adult Health
DX: R05 Cough (principal)

== ENCOUNTER → 2016-07-30 | Outpatient (CLI) | payer OTHER ==
[~2016-07-30] MED LIST changes: +ACETAMINOPHEN 325 MG TAB As Ordered ONE; +AMMO12CR4 EXT; +BREO1INH3 INH; +COLA100C PO; +DRIS50002 PO; +JOLETAB PO; +LIDOCAINE 1% MDV 20ML VIAL As Ordered ONE; +METF500T4 PO; +NASA1SPR; +VICKLIQ PO; +[UNRECOGNIZED DRUG - CODE] PO
--- NOTE | 2016-07-30 16:39 | REP ---
CT GUIDED LEFT LOWER QUADRANT ABSCESS DRAIN: The procedure was performed under the direct supervision of Dr. Maldonado. The patient has a history of a left lower quadrant abscess seen on a previous CT scan dated 07/29/2016. The risks and benefits of the procedure were explained to the patient and informed consent was obtained. The left lower quadrant abscess was localized using CT guidance. The skin was prepped and draped in a sterile fashion. 1% Xylocaine was used a local anesthetic. Using CT guidance, an #8-[place] skater APDL catheter was inserted using trocar technique. 10 mL of beige thick fluid was withdrawn and sent to the lab. The abscess cavity was flushed with four 10 mL sterile saline flushes yielding 40 mL of returned fluid. The catheter was affixed to the skin and a sterile dressing was applied. The catheter was connected to a gravity drainage bag. The patient tolerated the procedure well and there were no immediate complications. After the appropriate amount of monitored convalescence the patient was discharged from the department. Reviewed by RENÉ Rendon 07/30/2016 05:15 PEdited and Signed by Olman Maldonado MD 07/31/2016 06:24 P
== END | disposition home or self-care (01) ==
LOC: M RADPRO 14:05
PROVIDERS: ATTEND Surgery
DX: K65.1 Peritoneal abscess (principal); Z79.899 Other long term (current) drug therapy; Z88.8 Allergy status to other drugs, medicaments and biological substances; Z88.0 Allergy status to penicillin; Z88.1 Allergy status to other antibiotic agents

== ENCOUNTER → 2016-08-31 | Outpatient (CLI) | payer OTHER ==
[~2016-08-31] MED LIST changes: -ACETAMINOPHEN 325 MG TAB As Ordered ONE; -LIDOCAINE 1% MDV 20ML VIAL As Ordered ONE
--- NOTE | 2016-08-31 11:49 | REP ---
MAXILLOFACIAL CT WITHOUT CONTRAST: HISTORY: Allergic rhinitis. A right Susan cell is present. Minimal mucosal thickening is present in the maxillary and right ethmoid sinuses. The remaining sinuses are clear. The osteomeatal units are patent. The middle and inferior nasal turbinates are partially paradoxical. There is melisa bullosa on the left middle nasal turbinate. There is minimal deviation of the nasal septum to the right. The nasal septum abuts the right inferior nasal turbinate. The cribriform plate, medial anne of the orbits and optic canals are intact. The carotid canals form a segment of the posterolateral anne of the sphenoid sinus. The left sphenoid sinus septum inserts into the left internal carotid canal wall. IMPRESSION: Sinus mucosal thickening as described above. Signed by Keith Kebede MD 08/31/2016 12:00 P
== END ==
LOC: M RAD 09:48
PROVIDERS: ATTEND Family Medicine
DX: J30.9 Allergic rhinitis, unspecified (principal)

== ENCOUNTER → 2016-10-16 | Outpatient (CLI) | payer OTHER ==
[~2016-10-16] MED LIST changes: -COLA100C PO; +COLA100C3 PO
[2016-10-16 17:49] LABS: BASO % 0.5 % (0.0-1.0); EOS # 0.1 K/mm3 (0.0-0.50); EOS % 1.2 % (0.0-3.0); LARGE UNSTAINED CELL # 0.1 K/mm3 (0.0-0.4); LARGE UNSTAINED CELL % 1.4 % (0.0-4.0); LYMPH # 1.4 K/mm3 (1.5-4.5); LYMPH % 14.2 % (24.0-44.0); MEAN CORPUSCULAR HEMOGLOBIN 30.9 pg (27.0-33.0); MEAN CORPUSCULAR HGB CONC 32.6 g/dl (32.0-36.5); MEAN CORPUSCULAR VOLUME 94.8 fl (80.0-96.0); MONO # 0.5 K/mm3 (0.0-0.8); MONO % 4.8 % (0.0-5.0); NEUTROPHILS # 7.4 K/mm3 (1.8-7.7); NEUTROPHILS % 77.8 % (36.0-66.0); PLATELET COUNT, AUTOMATED 419 k/mm3 (150-450); RED CELL DISTRIBUTION WIDTH 12.6 % (11.5-14.5); WHITE BLOOD COUNT 9.5 K/mm3 (4.0-10.0)
[2016-10-16 18:32] LABS: IMMUNOGLOBULIN G 902 MG/DL (681-1648); IMMUNOGLOBULIN M 199 MG/DL (40-230)
[2016-10-16 19:10] LABS: IMMUNOGLOBULIN E < 3.6 IU/ML (<100)
[2016-10-22 14:18] LABS: ANTI TETANUS ANTIBODY 1.21 IU/mL (<0.10); STREP PNEUMO TYPE 12F <0.3 ug/mL (>1.3); STREP PNEUMO TYPE 18C 0.4 ug/mL (>1.3); STREP PNEUMO TYPE 19A 4.4 ug/mL (>1.3); STREP PNEUMO TYPE 19F 0.8 ug/mL (>1.3); STREP PNEUMO TYPE 23F 0.5 ug/mL (>1.3); STREP PNEUMO TYPE 6B 3.9 ug/mL (>1.3); STREP PNEUMO TYPE 9V 3.7 ug/mL (>1.3)
== END ==
LOC: M SMT 11:17
PROVIDERS: ATTEND Allergy & Immunology Allergy
DX: D84.9 Immunodeficiency, unspecified (principal)

== ENCOUNTER → 2016-11-17 | Outpatient (REF) | payer OTHER ==
[2016-11-17 12:13] LABS: ALBUMIN 3.1 GM/DL (3.2-5.2); ALBUMIN/GLOBULIN RATIO 0.89 (1.00-1.93); ALKALINE PHOSPHATASE 84 U/L (45-117); ALT/SGPT 20 U/L (12-78); ANION GAP 7 MEQ/L (8-16); AST/SGOT 10 U/L (15-37); BILIRUBIN,TOTAL 0.4 MG/DL (0.2-1.0); BLOOD UREA NITROGEN 14 MG/DL (7-18); CALCIUM LEVEL 8.8 MG/DL (8.5-10.1); CARBON DIOXIDE LEVEL 26 MEQ/L (21-32); CHLORIDE LEVEL 107 MEQ/L (98-107); CHOLESTEROL LEVEL 167 MG/DL (<200); CREATININE FOR GFR 0.63 MG/DL (0.55-1.02); GLOMERULAR FILTRATION RATE > 60.0 (>51); GLUCOSE, FASTING 100 MG/DL (70-105); POTASSIUM SERUM 4.3 MEQ/L (3.5-5.1); SODIUM LEVEL 140 MEQ/L (136-145); TOTAL PROTEIN 6.6 GM/DL (6.4-8.2); TRIGLYCERIDES LEVEL 71 MG/DL (<150)
== END ==
LOC: M SFHCPLAZ 09:40
PROVIDERS: ATTEND Family Medicine
DX: E78.2 Mixed hyperlipidemia (principal); R73.01 Impaired fasting glucose

== ENCOUNTER → 2016-12-23 | Outpatient (CLI) | payer OTHER ==
[~2016-12-23] MED LIST changes: +CIPR-249 PO; -CIPR500T89 PO; -COLA100C3 PO; +COLA100C5 PO
[2016-12-29 00:11] LABS: STREP PNEUMO TYPE 12F 3.3 ug/mL (>1.3); STREP PNEUMO TYPE 18C >22.4 ug/mL (>1.3); STREP PNEUMO TYPE 19A >23.2 ug/mL (>1.3); STREP PNEUMO TYPE 19F 3.1 ug/mL (>1.3); STREP PNEUMO TYPE 23F 7.4 ug/mL (>1.3); STREP PNEUMO TYPE 6B 65.8 ug/mL (>1.3); STREP PNEUMO TYPE 7F >26.2 ug/mL (>1.3); STREP PNEUMO TYPE 9N >44.4 ug/mL (>1.3); STREP PNEUMO TYPE 9V >24.3 ug/mL (>1.3)
== END ==
LOC: M SMT 09:33
PROVIDERS: ATTEND Nurse Practitioner Family
DX: J32.9 Chronic sinusitis, unspecified (principal)

== ENCOUNTER → 2017-01-15 | Outpatient (CLI) | payer OTHER ==
[2017-01-15 18:37] LABS: BASO % 0.6 % (0.0-1.0); EOS # 0.2 K/mm3 (0.0-0.50); EOS % 2.2 % (0.0-3.0); LARGE UNSTAINED CELL # 0.1 K/mm3 (0.0-0.4); LARGE UNSTAINED CELL % 1.8 % (0.0-4.0); LYMPH # 1.4 K/mm3 (1.5-4.5); LYMPH % 16.8 % (24.0-44.0); MEAN CORPUSCULAR HEMOGLOBIN 28.1 pg (27.0-33.0); MEAN CORPUSCULAR HGB CONC 32.7 g/dl (32.0-36.5); MEAN CORPUSCULAR VOLUME 85.9 fl (80.0-96.0); MONO # 0.5 K/mm3 (0.0-0.8); MONO % 6.6 % (0.0-5.0); NEUTROPHILS # 5.4 K/mm3 (1.8-7.7); PLATELET COUNT, AUTOMATED 388 k/mm3 (150-450); RED CELL DISTRIBUTION WIDTH 13.2 % (11.5-14.5); WHITE BLOOD COUNT 7.5 K/mm3 (4.0-10.0)
[2017-01-15 18:54] LABS: ANION GAP 8 MEQ/L (8-16); BLOOD UREA NITROGEN 11 MG/DL (7-18); CALCIUM LEVEL 8.7 MG/DL (8.5-10.1); CARBON DIOXIDE LEVEL 27 MEQ/L (21-32); CHLORIDE LEVEL 104 MEQ/L (98-107); CREATININE FOR GFR 0.67 MG/DL (0.55-1.02); GLOMERULAR FILTRATION RATE > 60.0 (>51); GLUCOSE, FASTING 86 MG/DL (70-105); SODIUM LEVEL 139 MEQ/L (136-145)
--- NOTE | 2017-01-16 09:37 | REP ---
SUPINE ABDOMEN: 01/15/2017. Comparison: CT abdomen and pelvis 07/29/2016. Clinical history: Left lower quadrant pain. Findings: Two views show multiple pelvic phleboliths in the pelvic ring as seen on her CT in July. The gas pattern is nonspecific with scattered stool and gas without dilated loops. Small bowel loops are mostly fluid filled, but not dilated. No abnormal calcifications over the renal fossae or expected course of the ureters. Bones grossly intact. Impression: 1. Negative for obstruction, mass or other acute finding. No suspicious calcifications overlying the renal fossae or expected course of the ureters. There are numerous bilateral pelvic phleboliths and a pelvic ring or pessary. Signed by Ashok Villarreal MD 01/16/2017 08:09 A
== END ==
LOC: M LAB 18:08
PROVIDERS: ATTEND Family Medicine
DX: R10.32 Left lower quadrant pain (principal)

== ENCOUNTER → 2017-01-15 | Outpatient (CLI) | payer OTHER ==
--- NOTE | 2017-01-16 09:37 | REP ---
LEFT HIP, COMPLETE: 01/15/2017. Comparison CT abdomen and pelvis 07/29/2016. Clinical history: Trochanteric bursitis symptoms. Findings: Two views show slight valgus configuration of the hip. I do not see hip joint space narrowing. No abnormal soft tissue calcifications about the greater trochanter nor significant spurring from the superior margin of the acetabulum. Pubic rami, symphysis pubis and inferior aspect SI joint intact. Impression: 1. No visible or displaced fracture, avulsion or abnormal soft tissue calcifications adjacent to the greater trochanter. I see no significant finding, AVN, fracture or other acute abnormality. Incidentally noted are pelvic phleboliths and a vaginal ring as seen on CT 07/29/2016. Signed by Ashok Villarreal MD 01/16/2017 08:08 A
== END ==
LOC: M RAD 18:17
PROVIDERS: ATTEND Family Medicine
DX: M70.62 Trochanteric bursitis, left hip (principal); Y99.8 Other external cause status; Y92.9 Unspecified place or not applicable; Y93.9 Activity, unspecified

== ENCOUNTER → 2017-03-11 | Outpatient (REF) | payer OTHER | LOC: M SFHCPLAZ 15:36 | PROVIDERS: ATTEND Nurse Practitioner Family | DX: J02.9 Acute pharyngitis, unspecified (principal) ==

== ENCOUNTER 2017-03-12 09:30 | Outpatient (RCR) | payer OTHER | END 2017-03-13 | LOC: M PT 09:30 | PROVIDERS: ATTEND Family Medicine | DX: Z51.89 Encounter for other specified aftercare (principal); M70.62 Trochanteric bursitis, left hip ==

== ENCOUNTER → 2017-03-23 | Outpatient (REF) | payer OTHER | LOC: M SFHCPLAZ 10:13 | PROVIDERS: ATTEND Family Medicine | DX: E78.2 Mixed hyperlipidemia (principal); R73.01 Impaired fasting glucose ==

== ENCOUNTER → 2017-05-13 | Outpatient (RCR) | payer OTHER | LOC: M PT 04-15 09:35 | PROVIDERS: ATTEND Family Medicine | DX: Z51.89 Encounter for other specified aftercare (principal); M70.62 Trochanteric bursitis, left hip; H81.11 Benign paroxysmal vertigo, right ear ==

== ENCOUNTER 2017-05-18 09:35 | Outpatient (RCR) | payer OTHER | END 2017-06-13 | LOC: M PT 09:35 | DX: Z51.89 Encounter for other specified aftercare (principal); M70.62 Trochanteric bursitis, left hip | CPT/HCPCS: 97035 ==

== ENCOUNTER → 2017-05-31 | Outpatient (CLI) | payer OTHER ==
--- NOTE | 2017-05-31 10:45 | REPMRS ---
Patient History The patient states she had a clinical breast exam in No known family history of cancer. Taking hormonal contraceptives for 6 years beginning at age 45. Digital Woman Screen Mammo: May 31, 2017 - Exam #: [id number] Bilateral CC and MLO view(s) were taken. Technologist: Hortensia Nj, Technologist Prior study comparison: September 09, 2015, digital woman screen mammo performed at [facility]. FINDINGS: There are scattered fibroglandular densities. There has been no change in the appearance of the mammogram from the prior studies. There is a mild amount of residual fibroglandular tissue which is fairly symmetric. There is no interval development of dominant mass, architectural distortion, or clustered microcalcification suggestive of malignancy. ASSESSMENT: BI-RADS/ACR category 1 mammogram. Negative. Recommendation Routine screening mammogram in 1 year (for women over age 40). This mammogram was interpreted with the aid of an FDA-approved computer-aided dectection system. Electronically Signed By: Olman Maldonado MD 05/31/17 [id number]
== END ==
LOC: M WHC 09:41
PROVIDERS: ATTEND Nurse Practitioner Family
DX: Z12.31 Encounter for screening mammogram for malignant neoplasm of breast (principal); Z79.3 Long term (current) use of hormonal contraceptives

== ENCOUNTER → 2017-05-31 | Outpatient (REF) | payer OTHER | LOC: M SFHCWAGY 16:01 | PROVIDERS: ATTEND Nurse Practitioner Family | DX: Z12.4 Encounter for screening for malignant neoplasm of cervix (principal) ==

== ENCOUNTER → 2017-07-08 | Outpatient (REF) | payer OTHER ==
[2017-07-08 12:49] LABS: ALBUMIN 3.4 GM/DL (3.2-5.2); ALBUMIN/GLOBULIN RATIO 0.92 (1.00-1.93); ALKALINE PHOSPHATASE 117 U/L (45-117); ALT/SGPT 14 U/L (12-78); ANION GAP 7 MEQ/L (8-16); AST/SGOT 11 U/L (7-37); BILIRUBIN,TOTAL 0.4 MG/DL (0.2-1.0); BLOOD UREA NITROGEN 15 MG/DL (7-18); C REACTIVE PROTEIN QUANTITATIV 1.09 MG/DL (0.00-0.30); CALCIUM LEVEL 8.7 MG/DL (8.5-10.1); CARBON DIOXIDE LEVEL 27 MEQ/L (21-32); CHLORIDE LEVEL 105 MEQ/L (98-107); CHOLESTEROL LEVEL 113 MG/DL (<200); CHOLESTEROL RISK RATIO 2.215 (<5); CPK CREATINE PHOSPHOKINASE 65 U/L (26-192); CREATININE FOR GFR 0.62 MG/DL (0.55-1.02); GLOMERULAR FILTRATION RATE > 60.0 (>51); GLUCOSE, FASTING 89 MG/DL (70-100); HDL CHOLESTEROL 51 MG/DL (>40); LDL CHOLESTEROL 49.4 MG/DL (<100); NON-HDL-C 62 MG/DL; SODIUM LEVEL 139 MEQ/L (136-145); TOTAL PROTEIN 7.1 GM/DL (6.4-8.2); TRIGLYCERIDES LEVEL 63 MG/DL (<150)
[2017-07-08 13:02] LABS: ESTIMATED AVERAGE GLUCOSE 143 MG/DL (60-110); HEMOGLOBIN A1c 6.6 %
[2017-07-10 14:12] LABS: INSULIN LEVEL 11.5 uIU/mL (2.6-24.9)
== END ==
LOC: M SFHCPLAZ 09:31
DX: R73.01 Impaired fasting glucose (principal)
CPT/HCPCS: 83525

== ENCOUNTER → 2017-08-02 | Outpatient (REF) | payer OTHER | LOC: M LAB REF 09:07 | DX: N76.0 Acute vaginitis (principal) ==

== ENCOUNTER → 2017-11-12 | Outpatient (REF) | payer OTHER ==
[2017-11-12 16:04] LABS: ALBUMIN 3.3 GM/DL (3.2-5.2); ALBUMIN/GLOBULIN RATIO 0.87 (1.00-1.93); ALKALINE PHOSPHATASE 100 U/L (45-117); ALT/SGPT 16 U/L (12-78); ANION GAP 6 MEQ/L (8-16); AST/SGOT 11 U/L (7-37); BILIRUBIN,TOTAL 0.3 MG/DL (0.2-1.0); BLOOD UREA NITROGEN 13 MG/DL (7-18); CALCIUM LEVEL 8.5 MG/DL (8.5-10.1); CARBON DIOXIDE LEVEL 27 MEQ/L (21-32); CHLORIDE LEVEL 107 MEQ/L (98-107); CREATININE FOR GFR 0.67 MG/DL (0.55-1.30); FREE T4 1.05 NG/DL (0.76-1.46); GLOMERULAR FILTRATION RATE > 60.0 (>51); GLUCOSE, FASTING 93 MG/DL (70-100); POTASSIUM SERUM 4.4 MEQ/L (3.5-5.1); SODIUM LEVEL 140 MEQ/L (136-145); TOTAL PROTEIN 7.1 GM/DL (6.4-8.2)
[2017-11-12 16:12] LABS: ESTIMATED AVERAGE GLUCOSE 143 MG/DL (60-110); HEMOGLOBIN A1c 6.6 %
[2017-11-12 16:13] LABS: TOTAL 25(OH) VITAMIN D 42.1 NG/ML (30.0-100.0)
[2017-11-12 16:14] LABS: PTH INTACT 72.6 PG/ML (18.5-88.0)
[2017-11-15 13:52] LABS: MAU/CREAT RATIO 16.7 MCG/MG (0.0-30.0)
== END ==
LOC: M SFHCPLAZ 09:56
DX: E78.2 Mixed hyperlipidemia (principal); E55.9 Vitamin D deficiency, unspecified; E11.9 Type 2 diabetes mellitus without complications

== ENCOUNTER → 2017-12-09 | Outpatient (REF) | payer OTHER | LOC: M SFHCPLAZ 16:46 | DX: H10.9 Unspecified conjunctivitis (principal) ==

== ENCOUNTER → 2018-03-09 | Outpatient (REF) | payer OTHER ==
[2018-03-09 15:16] LABS: ESTIMATED AVERAGE GLUCOSE 140 MG/DL (60-110); HEMOGLOBIN A1c 6.5 %
[2018-03-09 18:10] LABS: ALKALINE PHOSPHATASE 87 U/L (45-117); ALT/SGPT 18 U/L (12-78); ANION GAP 10 MEQ/L (8-16); AST/SGOT 8 U/L (7-37); BILIRUBIN,TOTAL 0.3 MG/DL (0.2-1.0); BLOOD UREA NITROGEN 13 MG/DL (7-18); CARBON DIOXIDE LEVEL 25 MEQ/L (21-32); CHLORIDE LEVEL 105 MEQ/L (98-107); CPK CREATINE PHOSPHOKINASE 31 U/L (26-192); CREATININE FOR GFR 0.67 MG/DL (0.55-1.30); GLOMERULAR FILTRATION RATE > 60.0 (>51); GLUCOSE, FASTING 92 MG/DL (70-100); POTASSIUM SERUM 4.1 MEQ/L (3.5-5.1); SODIUM LEVEL 140 MEQ/L (136-145); TRIGLYCERIDES LEVEL 122 MG/DL (<150)
[2018-03-09 18:11] LABS: ALBUMIN 3.4 GM/DL (3.2-5.2); ALBUMIN/GLOBULIN RATIO 0.92 (1.00-1.93); C REACTIVE PROTEIN QUANTITATIV 2.01 MG/DL (0.00-0.30); CHOLESTEROL LEVEL 143 MG/DL (<200); HDL CHOLESTEROL 50 MG/DL (>40); LDL CHOLESTEROL 69 MG/DL (<100); MAGNESIUM LEVEL 1.9 MG/DL (1.8-2.4); NON-HDL-C 93 MG/DL; TOTAL PROTEIN 7.1 GM/DL (6.4-8.2)
== END ==
LOC: M SFHCPLAZ 09:57
DX: E11.9 Type 2 diabetes mellitus without complications (principal); E78.2 Mixed hyperlipidemia

== ENCOUNTER → 2018-04-18 | Outpatient (REF) | payer OTHER ==
[2018-04-18 15:14] LABS: INR 1.96; PROTHROMBIN TIME 22.7 SECONDS (12.1-14.4)
== END ==
LOC: M SHH 13:54
DX: Z79.01 Long term (current) use of anticoagulants (principal)

== ENCOUNTER 2018-04-21 10:22 | Emergency (ER) | payer OTHER ==
[2018-04-21 11:11] LABS: BASO # 0.1 10^3/uL (0.0-0.2); BASO % 1.1 % (0.0-1.0); EOS # 0.2 10^3/uL (0.0-0.50); EOS % 1.9 % (0.0-3.0); HEMATOCRIT 34.3 % (36.0-47.0); HEMOGLOBIN 10.7 g/dl (12.0-15.5); IMMATURE GRANULOCYTE % 0.3 % (0-3.0); LYMPH # 1.6 10^3/uL (1.5-4.5); LYMPH % 15.4 % (24.0-44.0); MEAN CORPUSCULAR HEMOGLOBIN 23.6 pg (27.0-33.0); MEAN CORPUSCULAR HGB CONC 31.2 g/dl (32.0-36.5); MEAN CORPUSCULAR VOLUME 75.6 fl (80.0-96.0); MONO # 0.9 10^3/uL (0.0-0.8); MONO % 9.2 % (0.0-5.0); NEUTROPHILS # 7.3 10^3/uL (1.8-7.7); NEUTROPHILS % 72.1 % (36.0-66.0); RED BLOOD COUNT 4.54 10^6/uL (4.00-5.40); RED CELL DISTRIBUTION WIDTH 18.8 % (11.5-14.5); WHITE BLOOD COUNT 10.2 10^3/uL (4.0-10.0)
[2018-04-21 11:21] LABS: INR 2.24; PROTHROMBIN TIME 25.3 SECONDS (12.1-14.4)
[2018-04-21 11:43] LABS: PLATELET COUNT, AUTOMATED 1217 10^3/uL (150-450); POS COUNT POS FLAG
[2018-04-21 11:50] LABS: ALBUMIN/GLOBULIN RATIO 0.64 (1.00-1.93); ALKALINE PHOSPHATASE 202 U/L (45-117); ALT/SGPT 18 U/L (12-78); ANION GAP 10 MEQ/L (8-16); AST/SGOT 15 U/L (7-37); BILIRUBIN,DIRECT < 0.1 MG/DL (0.0-0.2); BILIRUBIN,TOTAL 0.2 MG/DL (0.2-1.0); BLOOD UREA NITROGEN 13 MG/DL (7-18); CALCIUM LEVEL 9.3 MG/DL (8.5-10.1); CARBON DIOXIDE LEVEL 26 MEQ/L (21-32); CHLORIDE LEVEL 99 MEQ/L (98-107); CK-MB VALUE MASS < 1.0 NG/ML (<3.6); CPK CREATINE PHOSPHOKINASE 26 U/L (26-192); CREATININE FOR GFR 0.79 MG/DL (0.55-1.30); GLOMERULAR FILTRATION RATE > 60.0 (>51); GLUCOSE, FASTING 150 MG/DL (70-100); LIPASE 1585 U/L (73-393); MB/CK RELATIVE INDEX 3.85 (< OR =4); NT-PRO BNP 21 PG/ML (<125); SODIUM LEVEL 135 MEQ/L (136-145); TOTAL PROTEIN 7.7 GM/DL (6.4-8.2); TROPONIN I < 0.02 NG/ML (< 0.10)
[2018-04-21] MEDS ORDERED: ISOVUE-370 76% 100ML VIAL (Q9967) As Ordered (12:06)
== END 2018-04-21 14:13 | disposition home or self-care (01) ==
LOC: M ED 10:22
DX: R07.9 Chest pain, unspecified (principal); R11.0 Nausea; Z86.711 Personal history of pulmonary embolism; Z98.890 Other specified postprocedural states; E11.9 Type 2 diabetes mellitus without complications; J45.909 Unspecified asthma, uncomplicated; K21.9 Gastro-esophageal reflux disease without esophagitis; E78.9 Disorder of lipoprotein metabolism, unspecified; Z87.891 Personal history of nicotine dependence; Z82.49 Family history of ischemic heart disease and other diseases of the circulatory system; Z88.8 Allergy status to other drugs, medicaments and biological substances; Z88.0 Allergy status to penicillin; Z79.899 Other long term (current) drug therapy; Z79.01 Long term (current) use of anticoagulants; Z79.2 Long term (current) use of antibiotics; Z79.84 Long term (current) use of oral hypoglycemic drugs; Z79.51 Long term (current) use of inhaled steroids
CPT/HCPCS: Q9967

== ENCOUNTER → 2018-04-22 | Outpatient (CLI) | payer OTHER ==
[2018-04-22 14:51] LABS: BASO # 0.1 10^3/uL (0.0-0.2); BASO % 1.3 % (0.0-1.0); EOS # 0.3 10^3/uL (0.0-0.50); HEMATOCRIT 36.5 % (36.0-47.0); HEMOGLOBIN 11.1 g/dl (12.0-15.5); IMMATURE GRANULOCYTE % 0.4 % (0-3.0); LYMPH # 1.8 10^3/uL (1.5-4.5); LYMPH % 19.7 % (24.0-44.0); MEAN CORPUSCULAR HEMOGLOBIN 23.5 pg (27.0-33.0); MEAN CORPUSCULAR HGB CONC 30.4 g/dl (32.0-36.5); MEAN CORPUSCULAR VOLUME 77.3 fl (80.0-96.0); MONO % 10.4 % (0.0-5.0); NEUTROPHILS # 6.1 10^3/uL (1.8-7.7); NEUTROPHILS % 65.2 % (36.0-66.0); RED BLOOD COUNT 4.72 10^6/uL (4.00-5.40); WHITE BLOOD COUNT 9.4 10^3/uL (4.0-10.0)
[2018-04-22 15:01] LABS: INR 1.55; PROTHROMBIN TIME 18.8 SECONDS (12.1-14.4)
[2018-04-22 15:02] LABS: PARTIAL THROMBOPLASTIN TIME 33.9 SECONDS (25.4-37.6)
[2018-04-22 15:14] LABS: POS COUNT POS FLAG
[2018-04-22 15:15] LABS: PLATELET COUNT, AUTOMATED 1221 10^3/uL (150-450)
== END ==
LOC: M LAB 13:56
DX: I26.99 Other pulmonary embolism without acute cor pulmonale (principal)
CPT/HCPCS: 85610

== ENCOUNTER → 2018-05-10 | Outpatient (REF) | payer OTHER ==
[2018-05-10 12:19] LABS: INR 1.21; PROTHROMBIN TIME 15.5 SECONDS (12.1-14.4)
== END ==
LOC: M SFHCPLAZ 10:44
DX: Z51.81 Encounter for therapeutic drug level monitoring (principal); Z79.01 Long term (current) use of anticoagulants
CPT/HCPCS: 85610

== ENCOUNTER → 2018-05-19 | Outpatient (CLI) | payer OTHER ==
[~2018-05-19] MED LIST changes: -ADV500INH INH; -ALBU17IN INH; -AMMO12CR4 EXT; -BREO1INH3 INH; -CIPR-249 PO; -CLAR1TAB2 PO; -COLA100C5 PO; -CYCL10TA PO; -DRIS50002 PO; -FLAG500T PO; -FLUC10TA PO; +GASTROGRAFIN SOLUTION 30ML (Q9963) As Ordered; -JOLETAB PO; -METF500T4 PO; -NASA1SPR; -OXYC10TA12 PO; -PROT1TAB2 PO; -SING10TA32 PO; -TYLE325T5 PO; -VICKLIQ PO; -[UNRECOGNIZED DRUG - CODE] PO; -birth control pills PO; -nasocort
== END ==
LOC: M RAD 09:59
DX: K57.20 Diverticulitis of large intestine with perforation and abscess without bleeding (principal); Z93.2 Ileostomy status
CPT/HCPCS: Q9963

== ENCOUNTER → 2018-06-01 | Outpatient (CLI) | payer OTHER ==
[~2018-06-01] MED LIST changes: +ADV500INH INH; +ALBU17IN INH; +ALBU83IN INH; +AMMO12CR4 EXT; +ARNU1INH3; +ASTE0.15; +ATOR1TAB19 PO; +ATOR1TAB21 PO; +BREO1INH3 INH; +CALCTAB38 PO; +CIPR-249 PO; +CLAR1TAB2 PO; +CLOT10TR PO; +COLA100C5 PO; +COUM7.5T PO; +CYCL10TA PO; +DRIS50003 PO; +ELIQ5TAB; +ELIQ5TAB PO; +FLAG500T PO; +FLUC10TA PO; -GASTROGRAFIN SOLUTION 30ML (Q9963) As Ordered; +HYDR2.5C TOP; +JARD1TAB3 PO; +JOLETAB PO; +LOVE1INJ SC; +METF500T4 PO; +METF750T PO; +MIRA3350 PO; +NASA1SPR; +NORC1TAB4 PO; +NORCOTAB PO; +OXYC10TA12 PO; +PANT40TA3 PO; +PRIL20TA2 PO; +PROT1TAB2 PO; +SING10TA32 PO; +STEG5TAB PO; +TYLE325T5 PO; +VENTAER INH; +VICKLIQ PO; +WARF-23 PO; +ZOFR4TAB14 SL; +[UNRECOGNIZED DRUG - CODE] PO; +birth control pills PO; +nasocort
--- NOTE | 2018-06-01 19:06 | REP ---
Clinical: Generalized abdominal pain. Technique: Supine and upright views of the abdomen and pelvis. Findings: Three total views demonstrates nonspecific bowel gas pattern with oral contrast material in the cecum and ascending / early transverse colon. No evidence for bowel obstruction or perforation. No organomegaly. Evidence for surgical suture material in the pelvis along with colostomy and pessary. Multiple phleboliths noted in the pelvis. Impression: Nonspecific bowel gas pattern. Findings as above. Electronically Signed by Gerardo Rosenbaum MD 06/01/2018 06:58 P
== END ==
LOC: M SMT 10:26
PROVIDERS: ATTEND Physician Assistant Medical
DX: R10.84 Generalized abdominal pain (principal)

== ENCOUNTER → 2018-06-02 | Outpatient (CLI) | payer OTHER ==
--- NOTE | 2018-06-02 12:48 | REPMRS ---
Patient History The patient states she had a clinical breast exam in 05/2018. No known family history of cancer. Took hormonal contraceptives for 6 years beginning at age 45. Digital Woman Screen Mammo: June 02, 2018 - Exam #: [id number] Bilateral CC and MLO view(s) were taken. Technologist: Natasha Montesinos Technologist Prior study comparison: May 31, 2017, digital woman screen mammo performed at [facility]. September 09, 2015, digital woman screen mammo performed at [facility]. FINDINGS: There are scattered fibroglandular densities. There has been no change in the appearance of the mammogram from the prior studies. There is a mild amount of scattered fibroglandular density which is fairly symmetric. There is no interval development of dominant mass, architectural distortion, or clustered microcalcification suggestive of malignancy. 3-D tomosynthesis shows no additional findings. Assessment: BI-RADS/ACR category 1 mammogram. Negative. Recommendation Routine screening mammogram of both breasts in 1 year (for women over age 40). This patient's Lifetime Breast Cancer RIsk is estimated at 10.5 %. This mammogram was interpreted with the aid of an FDA-approved computer-aided dectection system. Electronically Signed By: Ernst Lind MD 06/02/18 [id number]
== END ==
LOC: M WHC 09:53
PROVIDERS: ATTEND Family Medicine
DX: Z12.31 Encounter for screening mammogram for malignant neoplasm of breast (principal)

== ENCOUNTER 2018-06-17 06:10 | Inpatient (IN) | payer OTHER ==
[2018-06-17] VITALS (7 sets, daily range): BP systolic 108–131; BP diastolic 68–80
[~2018-06-17] VITALS: Ht 157.5 cm; Wt 93.3 kg
[~2018-06-17 06:10] MED LIST changes: -NORCOTAB PO; +cefoTEtan DISODIUM 2 GM in D5W MINI-BAG PLUS 50 ML IV ONE
[2018-06-17] MEDS ORDERED: BUPIVACAINE/EPIN 0.25% 30 ML VIAL As Ordered ONE (06:57)
[2018-06-17] MEDS ORDERED: LR 1,000 ML IV ONE (07:00)
[2018-06-17] MEDS ORDERED: PROPOFOL 200 MG/20 ML VIAL As Ordered ONE (07:14)
[2018-06-17] MEDS ORDERED: LIDOCAINE 2% INJ 100 MG/5 ML SDV (FOR ANES.) As Ordered ONE (07:14)
[2018-06-17] MEDS ORDERED: ROCURONIUM BROMIDE 50 MG/5 ML VIAL As Ordered ONE (07:14)
[2018-06-17] MEDS ORDERED: fentaNYL 250 MCG/5 ML INJECTION (J3010) As Ordered ONE (07:14)
[2018-06-17] MEDS ORDERED: MIDAZOLAM INJ 2 MG/2 ML VIAL (J2250) As Ordered ONE (07:15)
[2018-06-17] MEDS ORDERED: ETOMIDATE INJ 20MG/10ML VIAL As Ordered ONE (07:41)
[2018-06-17] MEDS ORDERED: GLYCOPYRROLATE INJ 0.2 MG/ML 2 ML VIAL As Ordered ONE (08:14)
[2018-06-17] MEDS ORDERED: ONDANSETRON 4MG/2ML VIAL (J2405) As Ordered ONE (08:14)
[2018-06-17] MEDS ORDERED: KETOROLAC 60 MG/2 ML VIAL (J1885) As Ordered ONE (08:14)
[2018-06-17] MEDS ORDERED: NEOSTIGMINE 10 MG/10 ML VIAL (J2710) As Ordered ONE (08:14)
[2018-06-17] MEDS: SENOKOT S TAB PO SCH ×2 (09:00→19:36)
[2018-06-17] MEDS: MONTELUKAST 10 MG TAB PO SCH (09:00)
[2018-06-17] MEDS: ATORVASTATIN 20 MG TAB PO SCH (09:00)
[2018-06-17] MEDS: PANTOPRAZOLE 40MG TAB (PROTONIX) PO SCH (09:00)
[2018-06-17] MEDS: LORATADINE 10 MG TAB PO SCH (09:00)
[2018-06-17] MEDS: AZELASTINE 137MCG NASAL SPY 30 ML (ASTELIN) SCH (09:00)
[2018-06-17] MEDS ORDERED: ALBUTEROL SULFATE 2.5 MG/0.5 ML INH NEB SOLN INH PRN (09:15)
[2018-06-17] MEDS ORDERED: KETOROLAC 30 MG/ML VIAL (J1885) IV PRN (09:15)
[2018-06-17] MEDS ORDERED: MORPHINE 4 MG/ML 1ML VIAL/SYRINGE (J2270) IV PRN (09:15)
[2018-06-17] MEDS ORDERED: ONDANSETRON 4MG/2ML VIAL (J2405) IV PRN ×2 (09:15→09:30)
[2018-06-17] MEDS ORDERED: ALBUTEROL 90 MCG/ACT 8GM HFA INHALER INH PRN (09:15)
[2018-06-17] MEDS ORDERED: fentaNYL 100 MCG/2 ML INJECTION (J3010) IV PRN (09:30)
[2018-06-17] MEDS ORDERED: MEPERIDINE INJ 25 MG/ML VIAL (J2175) IV PRN (09:30)
[2018-06-17] MEDS ORDERED: LR 1,000 ML IV SCH (09:30)
[2018-06-17] MEDS ORDERED: PERCOCET 5MG/325MG TAB PO PRN (09:30)
[2018-06-17] MEDS ORDERED: METOCLOPRAMIDE INJ 10MG/2ML VIAL (J2765) IV PRN (09:30)
[2018-06-17] MEDS ORDERED: SUGAMMADEX SODIUM 500 MG/5 ML VIAL (BRIDION) As Ordered ONE (09:52)
[2018-06-17] MEDS ORDERED: GLUCOSE 4 GM CHEW TABLET PO PRN (10:45)
[2018-06-17] MEDS ORDERED: DEXTROSE 50% 50 ML SYRINGE IV PRN (10:45)
[2018-06-17] MEDS ORDERED: GLUCAGON FOR INJ 1 MG VIAL (J1610) SC PRN (10:45)
[2018-06-17] MEDS ORDERED: PERCOCET 5MG/325MG TAB As Ordered ONE (11:55)
[2018-06-17] MEDS ORDERED: HumaLOG INSULIN (NovoLOG) PER UNIT SC SCH ×2 (12:00→21:00)
--- NOTE | 2018-06-17 12:04 | RO ---
DATE OF PROCEDURE: 06/17/2018 PREOPERATIVE DIAGNOSIS: Ileostomy status post diverticulitis. POSTOPERATIVE DIAGNOSIS: Ileostomy status post diverticulitis. PROCEDURE: Ileostomy reversal with primary small bowel anastomosis. SURGEON: Dr. Roa PORK CUTLET MAKER: Dr. Perales, who assisted with dissection of the small bowel, as well as the anastomosis. ANESTHESIA: General. ESTIMATED BLOOD LOSS: 5 mL. COMPLICATIONS: None. INDICATIONS FOR PROCEDURE: The patient 54-year-old female status post sigmoidectomy and a diverting ileostomy for diverticulitis. Currently presents for reversal. Risks and benefits of the procedure, not limited but including bleeding, infection, hernia formation, damage to surrounding structures, anastomotic leak and need for further surgery. She understood and signed consent. DESCRIPTION OF PROCEDURE: The patient brought to operating room #6. After sufficient sedation, the abdomen was sterilely prepped and draped. Next, time-out was done to confirm proper patient and proper procedure. Following that, an elliptical incision was made with a #10 blade scalpel around the ileostomy in the right lower quadrant. Once that was completed, the cautery was used to dissect through the subcutaneous tissues circumferentially until the bowel wall was identified. Using combination of blunt and sharp dissection with both cautery and Metzenbaum scissors, I carefully dissected free circumferentially around the efferent loops of the small bowel down to the level of the fascia. The small bowel was then freed up circumferentially from the fascia along the inside of the abdominal wall. Once all this was completed, I did a [id number] anastomosis starting with #3-0 silk suture, reapproximated the efferent limbs of the small bowel [id number], two small enterotomies were created and a [id number] anastomosis was created using a HALLE 75 stapler with blue load. Once this was completed, the mesentery was carefully dissected through with cautery and then the anastomosis was created with another stapler load across the open enterotomy using another load on the stapler. Once that was completed, the distal staple line was oversewn with a couple of #3-0 silk sutures. Tisseel was placed along the anastomosis and then the anastomosis was tucked back inside the abdomen. Fascia was then reapproximated with interrupted #0 Vicryl sutures. The wound was irrigated with saline. A couple more layers of interrupted #0 Vicryl sutures were used to bring back the anterior fascia and then the subcutaneous tissues were reapproximated with interrupted #3-0 Vicryl sutures, followed by a layer of michele to reapproximate the skin. Once this was all completed, the area was cleaned and dried, 4x4 and tape were applied, thus ending procedure.
[2018-06-17] MEDS: LR 1,000 ML IV SCH ×2 (13:47→15:17)
[2018-06-17] MEDS: ACETAMINOPHEN TAB 650MG DOSE (2X325MG) PO PRN (15:18)
[2018-06-17] MEDS: NORCO, ANEXSIA 5/325MG TABLET (HYDROcodone/ACETAMINOPHEN) PO PRN (19:36)
[2018-06-17] MEDS: APIXABAN 5 MG TAB (ELIQUIS) PO SCH (19:36)
[2018-06-17] MEDS: metFORMIN XR 750 MG TAB PO SCH (19:37)
[2018-06-18] MEDS: LR 1,000 ML IV SCH (00:33)
[2018-06-18 02:00] VITALS: BP 128/76
[2018-06-18] MEDS: NORCO, ANEXSIA 5/325MG TABLET (HYDROcodone/ACETAMINOPHEN) PO PRN ×4 (02:02→19:08)
[2018-06-18 06:00] VITALS: BP 105/73
[2018-06-18 07:16] LABS: HEMATOCRIT 33.1 % (36.0-47.0); HEMOGLOBIN 10.3 g/dl (12.0-15.5); MEAN CORPUSCULAR HEMOGLOBIN 24.8 pg (27.0-33.0); MEAN CORPUSCULAR HGB CONC 31.1 g/dl (32.0-36.5); MEAN CORPUSCULAR VOLUME 79.8 fl (80.0-96.0); PLATELET COUNT, AUTOMATED 423 10^3/uL (150-450); RED BLOOD COUNT 4.15 10^6/uL (4.00-5.40); WHITE BLOOD COUNT 9.1 10^3/uL (4.0-10.0)
[2018-06-18 07:40] LABS: BLOOD UREA NITROGEN 10 MG/DL (7-18); CALCIUM LEVEL 8.6 MG/DL (8.5-10.1); CARBON DIOXIDE LEVEL 26 MEQ/L (21-32); CHLORIDE LEVEL 107 MEQ/L (98-107); CREATININE FOR GFR 0.63 MG/DL (0.55-1.30); GLOMERULAR FILTRATION RATE > 60.0 (>51); GLUCOSE, FASTING 107 MG/DL (70-100); MAGNESIUM LEVEL 1.7 MG/DL (1.8-2.4); POTASSIUM SERUM 3.8 MEQ/L (3.5-5.1); SODIUM LEVEL 140 MEQ/L (136-145)
[2018-06-18] MEDS: ATORVASTATIN 20 MG TAB PO SCH (10:05)
[2018-06-18] MEDS: MONTELUKAST 10 MG TAB PO SCH (10:05)
[2018-06-18] MEDS: metFORMIN XR 750 MG TAB PO SCH ×2 (10:05→19:07)
[2018-06-18] MEDS: SENOKOT S TAB PO SCH ×2 (10:06→19:08)
[2018-06-18] MEDS: AZELASTINE 137MCG NASAL SPY 30 ML (ASTELIN) SCH (10:06)
[2018-06-18] MEDS: LORATADINE 10 MG TAB PO SCH (10:06)
[2018-06-18] MEDS: PANTOPRAZOLE 40MG TAB (PROTONIX) PO SCH (10:06)
[2018-06-18] MEDS: APIXABAN 5 MG TAB (ELIQUIS) PO SCH ×2 (10:06→19:08)
[2018-06-18 14:00] VITALS: BP 101/61
[2018-06-18 22:00] VITALS: BP 110/63
[2018-06-19 06:00] VITALS: BP 136/62
[2018-06-19 06:47] LABS: HEMATOCRIT 30.9 % (36.0-47.0); HEMOGLOBIN 9.5 g/dl (12.0-15.5); MEAN CORPUSCULAR HEMOGLOBIN 24.6 pg (27.0-33.0); MEAN CORPUSCULAR HGB CONC 30.7 g/dl (32.0-36.5); MEAN CORPUSCULAR VOLUME 80.1 fl (80.0-96.0); PLATELET COUNT, AUTOMATED 358 10^3/uL (150-450); RED BLOOD COUNT 3.86 10^6/uL (4.00-5.40); WHITE BLOOD COUNT 10.4 10^3/uL (4.0-10.0)
[2018-06-19 07:13] LABS: BLOOD UREA NITROGEN 6 MG/DL (7-18); CALCIUM LEVEL 8.7 MG/DL (8.5-10.1); CARBON DIOXIDE LEVEL 27 MEQ/L (21-32); CHLORIDE LEVEL 104 MEQ/L (98-107); CREATININE FOR GFR 0.52 MG/DL (0.55-1.30); GLOMERULAR FILTRATION RATE > 60.0 (>51); GLUCOSE, FASTING 104 MG/DL (70-100); MAGNESIUM LEVEL 1.6 MG/DL (1.8-2.4); POTASSIUM SERUM 3.4 MEQ/L (3.5-5.1); SODIUM LEVEL 139 MEQ/L (136-145)
[2018-06-19] MEDS ORDERED: NORCOTAB PO (10:05)
[2018-06-19] MEDS: ATORVASTATIN 20 MG TAB PO SCH (10:39)
[2018-06-19] MEDS: metFORMIN XR 750 MG TAB PO SCH (10:39)
[2018-06-19] MEDS: MONTELUKAST 10 MG TAB PO SCH (10:40)
[2018-06-19] MEDS: PANTOPRAZOLE 40MG TAB (PROTONIX) PO SCH (10:40)
[2018-06-19] MEDS: SENOKOT S TAB PO SCH (10:40)
[2018-06-19] MEDS: AZELASTINE 137MCG NASAL SPY 30 ML (ASTELIN) SCH (10:40)
[2018-06-19] MEDS: ACETAMINOPHEN TAB 650MG DOSE (2X325MG) PO PRN (11:29)
[2018-06-19] MEDS: APIXABAN 5 MG TAB (ELIQUIS) PO SCH (11:29)
[2018-06-19] MEDS: LORATADINE 10 MG TAB PO SCH (11:29)
--- NOTE | 2018-06-20 10:02 | DSES ---
DATE OF ADMISSION: 06/17/2018 DATE OF DISCHARGE: 06/19/2018 ADMISSION DIAGNOSIS: Diverticulitis and ileostomy. DISCHARGE DIAGNOSIS: Diverticulitis and ileostomy. HOSPITAL COURSE: The patient is a 53-year-old female presented for elective ileostomy reversal on 06/17/2018. She came in for surgery at 7:30 in the morning. Surgery was uneventful. The anastomosis was created without any difficulties. She was transferred to the floor postoperatively. Placed on a liquid diet. No Galloway. Her nasogastric (NG) tube in place overnight. She was doing well and started have bowel movements immediately. Was advanced to regular diet. Had no problems with any nausea, vomiting or pain over the weekend. Her labs were all stable. No problems with fevers. On postop day #2, on 06/19/2018, she was evaluated and still doing well, tolerating diet, having bowel movements regularly. Pain was controlled. She was discharged home. Given instructions to followup in the office in 2 weeks for staple removal. No baths for 5 days. Okay to shower. No lifting, pushing, pulling more than 20 pounds. All of her questions were answered. She was discharged home, and she will call the office if she has any other questions.
== END 2018-06-19 12:10 | disposition home or self-care (01) | DRG 221 ==
LOC: M OR 06:10 → M MS5PR 12:05
PROVIDERS: ADMIT Surgery; ATTEND Surgery
PROC: 0DB80ZZ Excision of Small Intestine, Open Approach (ICD-10-PCS; principal; 2018-06-17 07:30)
DX: Z43.2 Encounter for attention to ileostomy (principal); E55.9 Vitamin D deficiency, unspecified; E66.9 Obesity, unspecified; Z68.38 Body mass index [BMI] 38.0-38.9, adult; E11.9 Type 2 diabetes mellitus without complications; J45.30 Mild persistent asthma, uncomplicated; K59.09 Other constipation; K64.4 Residual hemorrhoidal skin tags; L71.9 Rosacea, unspecified; E78.2 Mixed hyperlipidemia; M15.0 Primary generalized (osteo)arthritis; M51.36 Other intervertebral disc degeneration, lumbar region; G47.33 Obstructive sleep apnea (adult) (pediatric); Z87.891 Personal history of nicotine dependence; Z79.01 Long term (current) use of anticoagulants; Z79.84 Long term (current) use of oral hypoglycemic drugs; Z88.0 Allergy status to penicillin; Z88.1 Allergy status to other antibiotic agents; Z86.718 Personal history of other venous thrombosis and embolism; Z79.899 Other long term (current) drug therapy

== ENCOUNTER → 2018-07-22 | Outpatient (REF) | payer OTHER ==
[~2018-07-22] MED LIST changes: +NORCOTAB PO; -cefoTEtan DISODIUM 2 GM in D5W MINI-BAG PLUS 50 ML IV ONE
[2018-07-22 12:33] LABS: BASO # 0.1 10^3/uL (0.0-0.2); BASO % 0.6 % (0.0-1.0); EOS # 0.2 10^3/uL (0.0-0.50); EOS % 2.8 % (0.0-3.0); HEMATOCRIT 33.3 % (36.0-47.0); LYMPH # 1.6 10^3/uL (1.5-4.5); LYMPH % 20.9 % (24.0-44.0); MEAN CORPUSCULAR HEMOGLOBIN 24.3 pg (27.0-33.0); MONO # 0.6 10^3/uL (0.0-0.8); MONO % 7.8 % (0.0-5.0); NEUTROPHILS # 5.2 10^3/uL (1.8-7.7); NEUTROPHILS % 67.5 % (36.0-66.0); PLATELET COUNT, AUTOMATED 403 10^3/uL (150-450); RED BLOOD COUNT 4.11 10^6/uL (4.00-5.40); WHITE BLOOD COUNT 7.7 10^3/uL (4.0-10.0)
[2018-07-22 13:01] LABS: ALBUMIN 3.8 GM/DL (3.2-5.2); ALT/SGPT 23 U/L (12-78); BILIRUBIN,TOTAL 0.3 MG/DL (0.2-1.0); BLOOD UREA NITROGEN 16 MG/DL (7-18); CALCIUM LEVEL 9.5 MG/DL (8.5-10.1); CARBON DIOXIDE LEVEL 29 MEQ/L (21-32); CHLORIDE LEVEL 103 MEQ/L (98-107); CREATININE FOR GFR 0.62 MG/DL (0.55-1.30); GLOMERULAR FILTRATION RATE > 60.0 (>51); GLUCOSE, FASTING 108 MG/DL (70-100); POTASSIUM SERUM 3.9 MEQ/L (3.5-5.1); SODIUM LEVEL 139 MEQ/L (136-145); TOTAL PROTEIN 6.9 GM/DL (6.4-8.2)
[2018-07-22 13:19] LABS: APPEARANCE, URINE CLEAR (CLEAR); BACTERIA, URINE AUTO 1+ (NEGATIVE); BILIRUBIN, URINE AUTO NEGATIVE (NEGATIVE); BLOOD, URINE BLOOD NEGATIVE (NEGATIVE); COLOR, URINE YELLOW (YELLOW); GLUCOSE, URINE (UA) AUTO 3+ mg/dL (NEGATIVE); KETONE, URINE AUTO NEGATIVE (NEGATIVE); LEUKOCYTE ESTERASE, URINE AUTO NEGATIVE (NEGATIVE); MUCUS, URINE SMALL (NEGATIVE); NITRITE, URINE AUTO NEGATIVE (NEGATIVE); PROTEIN, URINE AUTO NEGATIVE (NEGATIVE); RBC, URINE AUTO 1 /HPF (0-3); SPECIFIC GRAVITY URINE AUTO 1.029 (1.002-1.035); SQUAMOUS EPITHELIAL CELL UR AU 1 /HPF (0-6); UROBILINOGEN, URINE AUTO 0.2 mg/dL (0.0-2.0); WBC, URINE AUTO 1 /HPF (0-3)
[2018-07-22 13:29] LABS: HEMOGLOBIN A1c 6.7 %
[2018-07-22 13:43] LABS: TOTAL 25(OH) VITAMIN D 22.1 NG/ML (30.0-100.0)
[2018-07-22 13:44] LABS: PTH INTACT 42.1 PG/ML (18.5-88.0)
[2018-07-22 14:10] LABS: MALB URINE SIEMENS 18.6 MG/L
[2018-07-25 10:36] LABS: VITAMIN B12 LEVEL 243 PG/ML (232-1245)
== END ==
LOC: M LABDRAW1 10:54
PROVIDERS: ATTEND Family Medicine
DX: E55.9 Vitamin D deficiency, unspecified (principal); E11.9 Type 2 diabetes mellitus without complications

== ENCOUNTER → 2018-07-26 | Outpatient (REF) | payer OTHER ==
[2018-07-26 13:23] LABS: HEMATOCRIT 34.1 % (36.0-47.0)
[2018-07-26 13:45] LABS: C REACTIVE PROTEIN QUANTITATIV 1.59 MG/DL (0.00-0.30); FREE T4 0.98 NG/DL (0.76-1.46); PERCENT SATURATION 4.4 % (13.2-45.0); THYROID STIMULATING HORMONE 0.938 uIU/ML (0.358-3.740)
[2018-07-26 14:18] LABS: HEMOGLOBIN A1c 6.8 %
[2018-07-28 10:57] LABS: ANA (HEP2) Negative (.); CYCLIC CITRULLINATED PEPTIDE 68 units (0-19); ZINC RBC 1165 ug/dL (878-1660)
== END ==
LOC: M SFHCPLAZ 11:49
PROVIDERS: ATTEND Family Medicine
DX: M17.0 Bilateral primary osteoarthritis of knee (principal); E11.9 Type 2 diabetes mellitus without complications; E53.8 Deficiency of other specified B group vitamins; Z86.711 Personal history of pulmonary embolism

== ENCOUNTER 2018-08-17 11:55 | Emergency (ER) | payer OTHER ==
[~2018-08-17] VITALS: Ht 157.5 cm; Wt 94.9 kg
[2018-08-17] MEDS ORDERED: NS 1,000 ML IV ONE (12:30)
[2018-08-17] MEDS ORDERED: BREO1INH3 PO (12:32)
[2018-08-17 13:36] LABS: BASO # 0.1 10^3/uL (0.0-0.2); EOS # 0.2 10^3/uL (0.0-0.50); EOS % 2.6 % (0.0-3.0); HEMATOCRIT 30.8 % (36.0-47.0); HEMOGLOBIN 9.4 g/dl (12.0-15.5); LYMPH # 1.4 10^3/uL (1.5-4.5); LYMPH % 22.1 % (24.0-44.0); MEAN CORPUSCULAR HEMOGLOBIN 23.9 pg (27.0-33.0); MEAN CORPUSCULAR HGB CONC 30.5 g/dl (32.0-36.5); MEAN CORPUSCULAR VOLUME 78.2 fl (80.0-96.0); MONO # 0.6 10^3/uL (0.0-0.8); MONO % 9.2 % (0.0-5.0); NEUTROPHILS % 64.8 % (36.0-66.0); PLATELET COUNT, AUTOMATED 386 10^3/uL (150-450); RED BLOOD COUNT 3.94 10^6/uL (4.00-5.40); WHITE BLOOD COUNT 6.2 10^3/uL (4.0-10.0)
[2018-08-17 13:52] LABS: INR 1.05; PROTHROMBIN TIME 13.8 SECONDS (12.1-14.4)
[2018-08-17 14:10] LABS: ALBUMIN 3.4 GM/DL (3.2-5.2); ALT/SGPT 21 U/L (12-78); AMYLASE 49 U/L (25-115); BILIRUBIN,DIRECT < 0.1 MG/DL (0.0-0.2); BILIRUBIN,TOTAL 0.2 MG/DL (0.2-1.0); BLOOD UREA NITROGEN 17 MG/DL (7-18); CALCIUM LEVEL 8.5 MG/DL (8.5-10.1); CARBON DIOXIDE LEVEL 28 MEQ/L (21-32); CHLORIDE LEVEL 105 MEQ/L (98-107); CREATININE FOR GFR 0.55 MG/DL (0.55-1.30); GLOMERULAR FILTRATION RATE > 60.0 (>51); GLUCOSE, FASTING 79 MG/DL (70-100); LIPASE 108 U/L (73-393); POTASSIUM SERUM 3.7 MEQ/L (3.5-5.1); SODIUM LEVEL 140 MEQ/L (136-145); TOTAL PROTEIN 7.3 GM/DL (6.4-8.2)
[2018-08-17] MEDS ORDERED: ISOVUE-370 76% 100ML VIAL (Q9967) As Ordered ONE (14:28)
[2018-08-17 14:55] LABS: APPEARANCE, URINE CLEAR (CLEAR); BACTERIA, URINE AUTO NEGATIVE (NEGATIVE); BILIRUBIN, URINE AUTO NEGATIVE (NEGATIVE); BLOOD, URINE BLOOD NEGATIVE (NEGATIVE); COLOR, URINE YELLOW (YELLOW); GLUCOSE, URINE (UA) AUTO 3+ mg/dL (NEGATIVE); KETONE, URINE AUTO NEGATIVE (NEGATIVE); LEUKOCYTE ESTERASE, URINE AUTO NEGATIVE (NEGATIVE); MUCUS, URINE SMALL (NEGATIVE); NITRITE, URINE AUTO NEGATIVE (NEGATIVE); PROTEIN, URINE AUTO NEGATIVE (NEGATIVE); RBC, URINE AUTO 2 /HPF (0-3); SPECIFIC GRAVITY URINE AUTO 1.028 (1.002-1.035); SQUAMOUS EPITHELIAL CELL UR AU 0 /HPF (0-6); UROBILINOGEN, URINE AUTO 0.2 mg/dL (0.0-2.0); WBC, URINE AUTO 0 /HPF (0-3)
--- NOTE | 2018-08-17 15:10 | REP ---
CT ABDOMEN AND PELVIS WITH IV CONTRAST: TECHNIQUE: Axial contrast enhanced images from the lung bases to the pubic symphysis using 100 mL Isovue 370 intravenous contrast material with multiplanar reformations. COMPARISON: 04/21/2018 Visualized lung bases demonstrate mild fibroatelectatic change. Liver and gallbladder appear unremarkable. There is no biliary dilatation. The spleen, adrenals, pancreas and kidneys are unremarkable except for a few tiny calcifications in the right lower pole collecting system as seen on prior study of 04/21/2018. There is no hydroureteronephrosis bilaterally. There is no abdominal aortic aneurysm. There is no adenopathy. There is no free air or free fluid. There is an anterior abdominal wall hernia on the right at the site of a prior ostomy. There is a nonobstructed bowel loop within the hernia. There is no evidence of appendicitis or acute bowel inflammation. No fluid collection is seen. There is a pessary at the base of the uterus. Urinary bladder is mildly distended and appears unremarkable. No pelvic mass is seen. IMPRESSION: Right anterior abdominal wall hernia contains a nonobstructed bowel loop. This is at the site of a prior ostomy. No evidence of bowel obstruction or inflammation. No free air or free fluid and no fluid collection. No other acute finding. Electronically Signed by Olman Maldonado MD 08/17/2018 11:36 P
[2018-08-17 15:57] VITALS: BP 111/59
== END 2018-08-17 16:12 | disposition home or self-care (01) ==
LOC: M ED 11:55
DX: K43.2 Incisional hernia without obstruction or gangrene (principal); J45.909 Unspecified asthma, uncomplicated; E78.00 Pure hypercholesterolemia, unspecified; Z79.899 Other long term (current) drug therapy; Z79.01 Long term (current) use of anticoagulants; Z88.0 Allergy status to penicillin; Z88.8 Allergy status to other drugs, medicaments and biological substances
CPT/HCPCS: 36415; 74177; 80048; 80076; 81001; 82150; 83605; 83690; 85025; 85610; 85730; 96360; 96361; 99284; Q9967

== ENCOUNTER → 2018-09-08 | Outpatient (REF) | payer OTHER ==
[~2018-09-08] MED LIST changes: +BREO1INH3 PO; -ELIQ5TAB; +HYDR-3715 PO; -NORCOTAB PO
[2018-09-08 19:00] LABS: ALBUMIN 3.7 GM/DL (3.2-5.2); ALT/SGPT 28 U/L (12-78); BILIRUBIN,TOTAL 0.2 MG/DL (0.2-1.0); BLOOD UREA NITROGEN 14 MG/DL (7-18); CALCIUM LEVEL 8.8 MG/DL (8.5-10.1); CARBON DIOXIDE LEVEL 27 MEQ/L (21-32); CHLORIDE LEVEL 108 MEQ/L (98-107); CREATININE FOR GFR 0.66 MG/DL (0.55-1.30); GLOMERULAR FILTRATION RATE > 60.0 (>51); GLUCOSE, FASTING 92 MG/DL (70-100); POTASSIUM SERUM 4.1 MEQ/L (3.5-5.1); SODIUM LEVEL 142 MEQ/L (136-145); TOTAL PROTEIN 7.3 GM/DL (6.4-8.2)
[2018-09-08 19:06] LABS: BASO % 0.5 % (0.0-1.0); EOS # 0.1 10^3/uL (0.0-0.50); EOS % 1.6 % (0.0-3.0); HEMATOCRIT 33.9 % (36.0-47.0); HEMOGLOBIN 9.9 g/dl (12.0-15.5); LYMPH # 1.7 10^3/uL (1.5-4.5); LYMPH % 29.6 % (24.0-44.0); MEAN CORPUSCULAR HEMOGLOBIN 22.9 pg (27.0-33.0); MEAN CORPUSCULAR HGB CONC 29.2 g/dl (32.0-36.5); MEAN CORPUSCULAR VOLUME 78.3 fl (80.0-96.0); MONO # 0.4 10^3/uL (0.0-0.8); MONO % 7.1 % (0.0-5.0); NEUTROPHILS # 3.5 10^3/uL (1.8-7.7); NEUTROPHILS % 60.8 % (36.0-66.0); PLATELET COUNT, AUTOMATED 386 10^3/uL (150-450); RED BLOOD COUNT 4.33 10^6/uL (4.00-5.40); WHITE BLOOD COUNT 5.7 10^3/uL (4.0-10.0)
[2018-09-08 19:13] LABS: INR 1.08; PROTHROMBIN TIME 14.1 SECONDS (12.1-14.4)
[2018-09-08 19:14] LABS: PARTIAL THROMBOPLASTIN TIME 29.2 SECONDS (25.4-37.6)
[2018-09-11 00:07] LABS: BETA 2 MICROGLOBULIN 3.2 mg/L (0.6-2.4); CARDIOLIPIN IGA ANTIBODY <9 APL U/mL (0-11); CARDIOLIPIN IGG ANTIBODY <9 GPL U/mL (0-14); CARDIOLIPIN IGM ANTIBODY <9 MPL U/mL (0-12)
[2018-09-12 14:14] LABS: PROTEIN C FUNCTIONAL ACTIVITY 123 % (73-180); PROTEIN S FUNCTIONAL ACTIVITY 68 % (63-140)
[2018-09-16 10:01] LABS: DRVV SCREEN 63.9 SEC
[2018-09-16 10:02] LABS: PTT LUPUS TYPE ANTICOAG SCREEN 1.5 (0-1.2)
[2018-09-16 10:29] LABS: DRVV CONFIRM 50.9 SEC; LUPUS CONFIRM RATIO 1.3
[2018-09-16 10:30] LABS: NORMALIZED RATIO 1.15 (0.00-1.20)
== END ==
LOC: M SFHCPLAZ 15:53
PROVIDERS: ATTEND Family Medicine
DX: Z86.711 Personal history of pulmonary embolism (principal); D50.9 Iron deficiency anemia, unspecified; E11.9 Type 2 diabetes mellitus without complications

== ENCOUNTER 2018-09-14 11:44 | Outpatient (CLI) | payer OTHER ==
[~2018-09-14] VITALS: Ht 157.5 cm; Wt 94.9 kg
[2018-09-14] VITALS (9 sets, daily range): BP systolic 95–115; BP diastolic 54–74
[~2018-09-14 11:44] MED LIST changes: -AMMO12CR4 EXT; +AMMO12CR7 EXT; -NORC1TAB4 PO; +NORC1TAB7 PO
[2018-09-14] MEDS ORDERED: IRON SUCROSE 225 MG in NS 250 ML IV ONE (12:00)
[2018-09-14] MEDS ORDERED: IRON SUCROSE 25 MG in NS 50 ML IV ONE (12:00)
== END 2018-09-14 18:00 | disposition home or self-care (01) ==
LOC: M INFU 11:44
PROVIDERS: ATTEND Family Medicine
DX: D50.9 Iron deficiency anemia, unspecified (principal); Z88.0 Allergy status to penicillin; Z88.1 Allergy status to other antibiotic agents
CPT/HCPCS: 96365; 96366; J1756

== ENCOUNTER 2018-09-16 06:10 | Day surgery (SDC) | payer OTHER ==
[~2018-09-16] VITALS: Ht 157.5 cm; Wt 92.5 kg
[~2018-09-16 06:10] MED LIST changes: +CLINDAMYCIN 600 MG in APPROPRIATE DILUENT 1 EA IV ONE; +LIDOCAINE 1% MDV 20ML VIAL SQ PRN; +LR 1,000 ML IV ONE
[2018-09-16] MEDS ORDERED: BUPIVACAINE/EPIN 0.25% 30 ML VIAL As Ordered ONE (06:56)
[2018-09-16] MEDS ORDERED: ROCURONIUM BROMIDE 50 MG/5 ML VIAL As Ordered ONE (07:10)
[2018-09-16] MEDS ORDERED: LIDOCAINE 2% INJ 100 MG/5 ML SDV (FOR ANES.) As Ordered ONE (07:10)
[2018-09-16] MEDS ORDERED: MIDAZOLAM INJ 2 MG/2 ML VIAL (J2250) As Ordered ONE (07:10)
[2018-09-16] MEDS ORDERED: fentaNYL 100 MCG/2 ML INJECTION (J3010) As Ordered ONE ×2 (07:10→08:56)
[2018-09-16] MEDS ORDERED: dexameTHASONE 4 MG/ML 1ML VIAL (J1100) As Ordered ONE (07:10)
[2018-09-16] MEDS ORDERED: ONDANSETRON 4MG/2ML VIAL (J2405) As Ordered ONE ×2 (07:10→10:01)
[2018-09-16] MEDS ORDERED: PROPOFOL 200 MG/20 ML VIAL As Ordered ONE (07:10)
[2018-09-16] MEDS ORDERED: GLYCOPYRROLATE INJ 0.2 MG/ML 2 ML VIAL As Ordered ONE (07:11)
[2018-09-16] MEDS ORDERED: NEOSTIGMINE 10 MG/10 ML VIAL (J2710) As Ordered ONE (07:11)
[2018-09-16] MEDS ORDERED: KETOROLAC 60 MG/2 ML VIAL (J1885) As Ordered ONE (08:10)
[2018-09-16] MEDS ORDERED: SUGAMMADEX SODIUM 500 MG/5 ML VIAL (BRIDION) As Ordered ONE (09:19)
[2018-09-16] MEDS ORDERED: PERCOCET 5MG/325MG TAB As Ordered ONE (10:01)
[2018-09-16] MEDS ORDERED: LR 1,000 ML IV SCH (10:30)
[2018-09-16] MEDS ORDERED: PERCOCET 5MG/325MG TAB PO PRN (10:30)
[2018-09-16] MEDS ORDERED: ONDANSETRON 4MG/2ML VIAL (J2405) IV PRN (10:30)
[2018-09-16] MEDS ORDERED: fentaNYL 100 MCG/2 ML INJECTION (J3010) IV PRN (10:30)
[2018-09-16] MEDS ORDERED: NORCO, ANEXSIA 5/325MG TABLET (HYDROcodone/ACETAMINOPHEN) PO PRN (10:30)
[2018-09-16 12:05] VITALS: BP 122/57
--- NOTE | 2018-09-16 14:11 | RO ---
DATE OF PROCEDURE: 09/16/2018 PREOPERATIVE DIAGNOSIS: Incarcerated incisional hernia. POSTOPERATIVE DIAGNOSIS: Incarcerated inguinal hernia. PROCEDURE: Robotic lysis of adhesions and repair of incarcerated incisional hernia with mesh. SURGEON: Olman Roa DO REPRODUCER: AIDA Woods ANESTHESIA: General. ESTIMATED BLOOD LOSS: 5 mL. COMPLICATIONS: None. INDICATIONS FOR PROCEDURE: Patient is a 53-year-old female status post diverting ileostomy reversal who presented a few months afterwards with a hernia on the right side at her diverting ileostomy site. It was about a 3 cm defect, did have some loops of bowel within it, and she was having pain from it. Therefore recommendation was to proceed with repair. The risks and benefits of procedure not limited to but including bleeding, infection, hernia formation, hernia recurrence, damage to surrounding structures, need for further surgery were discussed in detail with the patient. Informed consent was obtained and procedure was planned. PROCEDURE: Patient was brought back to operating room 7. After sufficient sedation, the abdomen sterilely prepped and draped. Next, a time out was done to confirm proper patient and proper procedure. Following that, a stab incision was made in the left lower quadrant, Veress needle was inserted, and the abdomen was insufflated to 15 mmHg. Next, the Veress needle was removed and a 8 mm OptiView was used to gain access to the abdomen. Once entering the abdomen, there were too many adhesions to be able to see anything. I left that port in place and placed another 8 mm port in the left midabdomen. Upon entering there, I identified multiple adhesions in the left upper quadrant. I placed another 8 mm port in the left lower quadrant. Using those two ports, I was able to use some sharp and blunt dissection to take down enough of the adhesions in the left upper quadrant so that that port could be visualized and used. Once all three ports were in, the robot was connected then attention was placed to the right lower quadrant. There were loops of small bowel adhered inside of the hernia defect. These were all carefully dissected free. Once they were dissected free and all the adhesions were taken down in the right lower quadrant, I was able to use a #0 V-Loc suture to reapproximate the fascia and close the defect in the right lower quadrant. Once that was completed, I took a 9 cm round Parietex composite mesh, placed it in the right lower quadrant. Using a #2-0 V-Loc suture I was able to run the stitch circumferentially around the mesh to adhere it to the abdominal wall over top of the defect. Once that was completed the abdomen was desufflated. Skin incisions were closed #4-0 Vicryl subcuticular sutures. The abdomen was cleaned and dried. Steri-Strips, 4x4 and tape were applied, thus ending procedure.
== END 2018-09-16 13:06 | disposition home or self-care (01) ==
LOC: M SDC 06:10
PROVIDERS: ATTEND Surgery
DX: K43.0 Incisional hernia with obstruction, without gangrene (principal); K66.0 Peritoneal adhesions (postprocedural) (postinfection); E11.9 Type 2 diabetes mellitus without complications; E78.5 Hyperlipidemia, unspecified; G47.33 Obstructive sleep apnea (adult) (pediatric); K21.9 Gastro-esophageal reflux disease without esophagitis; J45.909 Unspecified asthma, uncomplicated; Z88.0 Allergy status to penicillin; Z88.8 Allergy status to other drugs, medicaments and biological substances; Z79.899 Other long term (current) drug therapy
CPT/HCPCS: 49655; C1781; J1100; J1885; J2250; J2405; J3010

== ENCOUNTER 2018-09-19 09:34 | Outpatient (CLI) | payer OTHER ==
[~2018-09-19] VITALS: Ht 157.5 cm; Wt 94.9 kg
[2018-09-19] VITALS (7 sets, daily range): BP systolic 99–120; BP diastolic 52–65
[~2018-09-19 09:34] MED LIST changes: -CLINDAMYCIN 600 MG in APPROPRIATE DILUENT 1 EA IV ONE; -LIDOCAINE 1% MDV 20ML VIAL SQ PRN; -LR 1,000 ML IV ONE
[2018-09-19 10:18] LABS: BASO # 0.1 10^3/uL (0.0-0.2); BASO % 0.7 % (0.0-1.0); EOS # 0.1 10^3/uL (0.0-0.50); EOS % 1.4 % (0.0-3.0); HEMATOCRIT 29.7 % (36.0-47.0); LYMPH # 1.3 10^3/uL (1.5-4.5); LYMPH % 14.8 % (24.0-44.0); MEAN CORPUSCULAR HEMOGLOBIN 23.3 pg (27.0-33.0); MEAN CORPUSCULAR HGB CONC 30.3 g/dl (32.0-36.5); MEAN CORPUSCULAR VOLUME 76.9 fl (80.0-96.0); MONO # 0.7 10^3/uL (0.0-0.8); MONO % 8.4 % (0.0-5.0); NEUTROPHILS # 6.4 10^3/uL (1.8-7.7); NEUTROPHILS % 74.4 % (36.0-66.0); PLATELET COUNT, AUTOMATED 417 10^3/uL (150-450); RED BLOOD COUNT 3.86 10^6/uL (4.00-5.40); WHITE BLOOD COUNT 8.6 10^3/uL (4.0-10.0)
[2018-09-19 10:32] LABS: URINE PREG TEST NEGATIVE (NEGATIVE)
[2018-09-19 10:45] LABS: ALT/SGPT 22 U/L (12-78); BILIRUBIN,TOTAL 0.6 MG/DL (0.2-1.0); BLOOD UREA NITROGEN 15 MG/DL (7-18); CARBON DIOXIDE LEVEL 27 MEQ/L (21-32); CHLORIDE LEVEL 104 MEQ/L (98-107); CREATININE FOR GFR 0.63 MG/DL (0.55-1.30); GLOMERULAR FILTRATION RATE > 60.0 (>51); GLUCOSE, FASTING 127 MG/DL (70-100); POTASSIUM SERUM 3.9 MEQ/L (3.5-5.1); SODIUM LEVEL 137 MEQ/L (136-145); TOTAL PROTEIN 6.5 GM/DL (6.4-8.2)
[2018-09-19] MEDS ORDERED: IRON SUCROSE 25 MG in NS 50 ML IV ONE (11:00)
[2018-09-19 11:55] LABS: HEPATITIS B SURFACE ANTIBODY NEGATIVE (POSITIVE)
[2018-09-19] MEDS ORDERED: IRON SUCROSE 225 MG in NS 250 ML IV ONE (12:00)
[2018-09-19 12:06] LABS: HEPATITIS B SURFACE ANTIGEN NEGATIVE (NEGATIVE)
[2018-09-19 12:34] LABS: HEPATITIS B CORE ANTIBODY IGM NEGATIVE (NEGATIVE); HEPATITIS C VIRUS ABY INDEX 0.1 INDEX (<0.8)
== END 2018-09-19 14:30 | disposition home or self-care (01) ==
LOC: M INFU 09:34
PROVIDERS: ATTEND Family Medicine
DX: D50.9 Iron deficiency anemia, unspecified (principal); Z88.0 Allergy status to penicillin; Z88.1 Allergy status to other antibiotic agents
CPT/HCPCS: 36415; 80053; 84703; 85025; 86705; 86706; 86803; 87340; 87389; 96365; 96366; 96376; J1756

== ENCOUNTER → 2018-10-10 | Outpatient (REF) | payer OTHER ==
[2018-10-10 17:21] LABS: BASO # 0.1 10^3/uL (0.0-0.2); BASO % 1.2 % (0.0-1.0); EOS # 0.2 10^3/uL (0.0-0.50); EOS % 2.4 % (0.0-3.0); HEMATOCRIT 35.9 % (36.0-47.0); HEMOGLOBIN 10.5 g/dl (12.0-15.5); LYMPH # 1.7 10^3/uL (1.5-4.5); LYMPH % 22.4 % (24.0-44.0); MEAN CORPUSCULAR HEMOGLOBIN 23.6 pg (27.0-33.0); MEAN CORPUSCULAR HGB CONC 29.2 g/dl (32.0-36.5); MEAN CORPUSCULAR VOLUME 80.9 fl (80.0-96.0); MONO # 0.7 10^3/uL (0.0-0.8); MONO % 9.9 % (0.0-5.0); NEUTROPHILS # 4.7 10^3/uL (1.8-7.7); PLATELET COUNT, AUTOMATED 549 10^3/uL (150-450); RED BLOOD COUNT 4.44 10^6/uL (4.00-5.40); WHITE BLOOD COUNT 7.4 10^3/uL (4.0-10.0)
[2018-10-10 17:28] LABS: C REACTIVE PROTEIN QUANTITATIV 1.03 MG/DL (0.00-0.30); FERRITIN 42 NG/ML (8-252); RHEUMATOID FACTOR QUANT < 10.0 IU/ML (<15.0)
[2018-10-10 17:35] LABS: VITAMIN B12 LEVEL 763 PG/ML (247-911)
[2018-10-10 17:42] LABS: ERYTHROCYTE SEDIMENTATION RATE 29 mm/hr (0-30)
[2018-10-13 00:06] LABS: ANA (HEP2) Negative (.); CYCLIC CITRULLINATED PEPTIDE 74 units (0-19)
[2018-10-13 08:07] LABS: BETA-2 GLYCOPROTEIN I ABY IGA <9 (0-25); BETA-2 GLYCOPROTEIN I ABY IGG <9 (0-20); BETA-2 GLYCOPROTEIN I ABY IGM <9 (0-32)
[2018-10-13 14:51] LABS: ANTI THROMBIN 3 ANTIGEN IMMUNO 81 % (72-124); ANTI THROMBIN 3 FUNCT ACTIVITY 126 % (75-135)
== END ==
LOC: M SFHCPLAZ 15:12
PROVIDERS: ATTEND Family Medicine
DX: D50.9 Iron deficiency anemia, unspecified (principal); E53.8 Deficiency of other specified B group vitamins; Z86.711 Personal history of pulmonary embolism; M06.9 Rheumatoid arthritis, unspecified

== ENCOUNTER 2018-12-18 19:50 | Emergency (ER) | payer OTHER ==
[~2018-12-18] VITALS: Ht 157.5 cm; Wt 96.8 kg
[2018-12-18 20:25] LABS: BASO # 0.1 10^3/uL (0.0-0.2); BASO % 0.8 % (0.0-1.0); EOS # 0.1 10^3/uL (0.0-0.50); EOS % 1.6 % (0.0-3.0); HEMOGLOBIN 11.9 g/dl (12.0-15.5); LYMPH # 1.8 10^3/uL (1.5-4.5); LYMPH % 21.1 % (24.0-44.0); MEAN CORPUSCULAR HEMOGLOBIN 24.8 pg (27.0-33.0); MEAN CORPUSCULAR HGB CONC 30.5 g/dl (32.0-36.5); MEAN CORPUSCULAR VOLUME 81.4 fl (80.0-96.0); MONO # 0.8 10^3/uL (0.0-0.8); MONO % 9.7 % (0.0-5.0); NEUTROPHILS # 5.5 10^3/uL (1.8-7.7); NEUTROPHILS % 66.6 % (36.0-66.0); PLATELET COUNT, AUTOMATED 404 10^3/uL (150-450); RED BLOOD COUNT 4.79 10^6/uL (4.00-5.40); WHITE BLOOD COUNT 8.3 10^3/uL (4.0-10.0)
[2018-12-18 20:45] LABS: BLOOD UREA NITROGEN 17 MG/DL (7-18); CARBON DIOXIDE LEVEL 28 MEQ/L (21-32); CHLORIDE LEVEL 106 MEQ/L (98-107); CK-MB VALUE MASS 1.3 NG/ML (<3.6); CPK CREATINE PHOSPHOKINASE 67 U/L (26-192); CREATININE FOR GFR 0.84 MG/DL (0.55-1.30); GLOMERULAR FILTRATION RATE > 60.0 (>51); GLUCOSE, FASTING 89 MG/DL (70-100); MB/CK RELATIVE INDEX 1.94 (< OR =4); POTASSIUM SERUM 3.8 MEQ/L (3.5-5.1); SODIUM LEVEL 140 MEQ/L (136-145); TROPONIN I < 0.02 NG/ML (< 0.10)
[2018-12-18 20:50] LABS: D-DIMER QUANT < 270 ng/ml (<500)
[2018-12-18 20:55] LABS: PROTHROMBIN TIME 11.9 SECONDS (11.8-14.0)
[2018-12-18] MEDS ORDERED: ISOVUE-370 76% 100ML VIAL (Q9967) As Ordered ONE (21:11)
--- NOTE | 2018-12-18 22:03 | REPVR ---
EXAM: CT Abdomen and Pelvis With Contrast EXAM DATE/TIME: 12/18/2018 9:21 PM CLINICAL HISTORY: 53 years old, female; Abdominal pain; Other: Pain at hernia mess; Prior surgery TECHNIQUE: Imaging protocol: Axial computed tomography images of the abdomen and pelvis with intravenous contrast. Coronal and sagittal reformatted images were created and reviewed. Radiation optimization: All CT scans at this facility use at least one of these dose optimization techniques: automated exposure control; mA and/or kV adjustment per patient size (includes targeted exams where dose is matched to clinical indication); or iterative reconstruction. Contrast material: ISOVUE 370; Contrast volume: 100 ml; Contrast route: IV; COMPARISON: CT ABD/PEL W/IV CONTRAST ONLY 08/17/2018 2:25 PM FINDINGS: Lungs: Minimal bibasilar fibro-atelectatic change with slight interstitial prominence. Liver: There is fatty infiltration of the liver. Gallbladder and bile ducts: The gallbladder is contracted with no stones. Pancreas: Normal. No ductal dilation. Spleen: Normal. No splenomegaly. Adrenals: Normal. No mass. Kidneys and ureters: Small nonobstructing right renal calculi. Stomach and bowel: Partial sigmoid resection with distal sigmoid anastomosis. Appendix: A normal appendix is seen. Intraperitoneal space: Normal. No free air. No significant fluid collection. Vasculature: Normal. No abdominal aortic aneurysm. Lymph nodes: Normal. No enlarged lymph nodes. Bladder: Unremarkable as visualized. Reproductive: Pessary in position. Bones/joints: No acute fracture. No dislocation. Soft tissues: Minimal fat filled umbilical hernia. Interval repair of right lower quadrant ventral wall hernia with slight scar stranding in the area. IMPRESSION: 1. Interval repair of spigelian hernia in the right lower quadrant since 08/17/2018. 2. Fatty infiltration of the liver. 3. Small nonobstructing right renal calculi. 4. Status post partial sigmoid resection with distal sigmoid anastomosis. Electronically signed by: Gabe Lewis On 12/18/2018 22:02:55 PM
--- NOTE | 2018-12-18 22:07 | REPVR ---
EXAM: CT Angiography Chest With Contrast EXAM DATE/TIME: 12/18/2018 9:16 PM CLINICAL HISTORY: 53 years old, female; Chest pain; Additional info: Cp TECHNIQUE: Imaging protocol: Axial computed tomographic angiography images of the chest with intravenous contrast using CT angiography protocol. Coronal and sagittal reformatted images were created and reviewed. 3D rendering: MIP reconstructed images were created and reviewed. Radiation optimization: All CT scans at this facility use at least one of these dose optimization techniques: automated exposure control; mA and/or kV adjustment per patient size (includes targeted exams where dose is matched to clinical indication); or iterative reconstruction. Contrast material: ISOVUE 370; Contrast volume: 100 ml; Contrast route: IV; COMPARISON: CT ANGIO CHEST 04/21/2018 12:16 PM FINDINGS: Pulmonary arteries: The main pulmonary artery measures 22 mm. No pulmonary embolism is identified. Aorta: The ascending thoracic aorta measures 34 mm. Lungs: Minimal scattered fibro-atelectatic change and question of minimal patchy infiltrates. Pleural space: Unremarkable. No pneumothorax. No pleural effusion. Heart: Unremarkable. No cardiomegaly. No pericardial effusion. Gallbladder and bile ducts: The gallbladder is contracted with no stones. Lymph nodes: Unremarkable. No enlarged lymph nodes. Bones/joints: Unremarkable. No acute fracture. Soft tissues: Unremarkable. IMPRESSION: 1. Minimal scattered fibro-atelectatic change and question of minimal patchy infiltrates. 2. Otherwise negative CTA chest. No pulmonary embolism is identified. Electronically signed by: Gabe Lewis On 12/18/2018 22:07:29 PM
[2018-12-18] MEDS ORDERED: KETOROLAC 30 MG/ML VIAL (J1885) IV ONE (22:30)
[2018-12-18 22:36] VITALS: BP 108/67
--- NOTE | 2018-12-19 16:42 | ECGEPIP ---
[facility] - ED Test Date: 2018-12-18 Pat Name: DANIELITO ABRAHAM Department: Room: - Gender: Female Appliquer: : 1965 Requested By: HERMANN DENTON Order Number: [id number] Reading MD: Angelo Manzo Measurements Intervals [place] Rate: 67 P: 46 HI: 191 QRS: QRSD: 92 T: 16 QT: 409 QTc: 432 Interpretive Statements SINUS RHYTHM Delayed anterior R wave progression as previously seen on tracing done 04-21-18 is no longer evident Electronically Signed on 12-19-2018 16:41:58 EDT by Angelo Manzo
== END 2018-12-18 22:36 | disposition home or self-care (01) ==
LOC: M ED 19:50
DX: R07.1 Chest pain on breathing (principal); G89.29 Other chronic pain; M54.9 Dorsalgia, unspecified; E66.9 Obesity, unspecified; D64.9 Anemia, unspecified; J45.909 Unspecified asthma, uncomplicated; K59.09 Other constipation; M19.90 Unspecified osteoarthritis, unspecified site; Z86.711 Personal history of pulmonary embolism; Z86.718 Personal history of other venous thrombosis and embolism; K76.0 Fatty (change of) liver, not elsewhere classified; N20.0 Calculus of kidney; Z90.49 Acquired absence of other specified parts of digestive tract; Z98.0 Intestinal bypass and anastomosis status; Z79.01 Long term (current) use of anticoagulants; Z79.899 Other long term (current) drug therapy; Z88.0 Allergy status to penicillin; Z88.1 Allergy status to other antibiotic agents; Z88.8 Allergy status to other drugs, medicaments and biological substances
CPT/HCPCS: 71275; 74177; 80048; 82550; 82553; 85025; 85379; 85610; 85730; 93005; 93041; 96374; 99284; J1885; Q9967

== ENCOUNTER → 2019-08-29 | Outpatient (REF) | payer OTHER ==
[~2019-08-29] MED LIST changes: +METF-791 PO; -METF500T4 PO; -METF750T PO; +METF750T36 PO
[2019-08-29 14:15] LABS: BLOOD UREA NITROGEN 19 MG/DL (7-18); CREATININE FOR GFR 0.61 MG/DL (0.55-1.30); GLOMERULAR FILTRATION RATE > 60.0 (>51)
== END ==
LOC: M LABDRAW1 11:32
PROVIDERS: ATTEND Surgery
DX: K62.89 Other specified diseases of anus and rectum (principal)

== ENCOUNTER → 2019-09-05 | Outpatient (CLI) | payer OTHER ==
[~2019-09-05] MED LIST changes: +GASTROGRAFIN SOLUTION 30ML (Q9963) As Ordered ONE; +ISOVUE-370 76% 100ML VIAL (Q9967) As Ordered ONE
--- NOTE | 2019-09-05 10:48 | REP ---
Clinical: Abdominal pain. History of prior resection. Technique: Axial contrast enhanced images from the lung bases to the pubic symphysis using oral (per protocol) and 100 ml Isovue 370 intravenous contrast material with coronal and sagittal re-formations. Comparison: 12/18/2018. Findings: Lung bases demonstrate minimal linear fibro atelectatic changes involving the lingula and right middle lobe. Visualized heart and pericardium normal. Diffuse fatty infiltration to the liver noted without focal hepatic lesion. Spleen, pancreas, gallbladder, bilateral adrenal glands and left kidney are normal. 2 x 6 mm nonobstructing right renal calculus again identified. The enteric system is without obstruction or acute inflammatory process. Normal terminal ileum and appendix are identified in the right lower quadrant. Evidence for prior partial sigmoid resection and anastomoses. Pelvis demonstrates partially collapsed normal bladder and presumed myomatous changes to the uterus. No ascites. No free air. No adenopathy. Abdominal aorta without aneurysm or dissection. Musculoskeletal structures demonstrate age-related changes without acute osseous abnormality. Impression: 1. Hepatic steatosis. 2. Nonobstructing right renal calculus. 3. Evidence of prior partial sigmoid resection without further acute enteric abnormality noted. 4. Suspected myomatous changes to the uterus. Electronically Signed by Gerardo Rosenbaum MD 09/05/2019 10:40 A
== END ==
LOC: M RAD 08:25
PROVIDERS: ATTEND Surgery
DX: K76.0 Fatty (change of) liver, not elsewhere classified (principal); N20.0 Calculus of kidney
CPT/HCPCS: 74177; Q9963; Q9967

== ENCOUNTER → 2019-09-14 | Outpatient (REF) | payer OTHER ==
[~2019-09-14] MED LIST changes: -GASTROGRAFIN SOLUTION 30ML (Q9963) As Ordered ONE; -ISOVUE-370 76% 100ML VIAL (Q9967) As Ordered ONE
[2019-09-14 18:08] LABS: ALBUMIN 3.5 GM/DL (3.2-5.2); ALT/SGPT 16 U/L (12-78); BASO # 0.1 10^3/uL (0.0-0.2); BASO % 0.7 % (0.0-1.0); BILIRUBIN,TOTAL 0.3 MG/DL (0.2-1.0); BLOOD UREA NITROGEN 16 MG/DL (7-18); CALCIUM LEVEL 9.6 MG/DL (8.5-10.1); CARBON DIOXIDE LEVEL 31 MEQ/L (21-32); CHLORIDE LEVEL 106 MEQ/L (98-107); CREATININE FOR GFR 0.71 MG/DL (0.55-1.30); EOS # 0.1 10^3/uL (0.0-0.5); GLOMERULAR FILTRATION RATE > 60.0 (>51); GLUCOSE, FASTING 73 MG/DL (70-100); HEMATOCRIT 39.5 % (36.0-47.0); HEMOGLOBIN 11.8 g/dl (12.0-15.5); LYMPH # 1.6 10^3/uL (1.5-5.0); LYMPH % 19.6 % (24.0-44.0); MAGNESIUM LEVEL 2.3 MG/DL (1.8-2.4); MEAN CORPUSCULAR HEMOGLOBIN 24.3 pg (27.0-33.0); MEAN CORPUSCULAR HGB CONC 29.9 g/dl (32.0-36.5); MEAN CORPUSCULAR VOLUME 81.3 fl (80.0-96.0); MONO # 0.7 10^3/uL (0.0-0.8); MONO % 9.1 % (0.0-5.0); NEUTROPHILS # 5.6 10^3/uL (1.5-8.5); NEUTROPHILS % 69.5 % (36.0-66.0); PLATELET COUNT, AUTOMATED 417 10^3/uL (150-450); POTASSIUM SERUM 4.3 MEQ/L (3.5-5.1); RED BLOOD COUNT 4.86 10^6/uL (4.00-5.40); SODIUM LEVEL 139 MEQ/L (136-145); TOTAL PROTEIN 7.3 GM/DL (6.4-8.2); WHITE BLOOD COUNT 8.1 10^3/uL (4.0-10.0)
[2019-09-14 18:14] LABS: TOTAL 25(OH) VITAMIN D 45.7 NG/ML (30.0-100.0)
[2019-09-14 18:15] LABS: PTH INTACT 48.3 PG/ML (18.5-88.0); VITAMIN B12 LEVEL 286 PG/ML (247-911)
[2019-09-14 18:35] LABS: HEMOGLOBIN A1c 6.4 %
== END ==
LOC: M SFHCPLAZ 15:44
PROVIDERS: ATTEND Family Medicine
DX: E78.2 Mixed hyperlipidemia (principal); D50.9 Iron deficiency anemia, unspecified; E11.9 Type 2 diabetes mellitus without complications; E55.9 Vitamin D deficiency, unspecified

== ENCOUNTER 2019-09-19 12:52 | Outpatient (RCR) | payer OTHER ==
[~2019-09-19 12:52] MED LIST changes: +CYCL-707 PO; -CYCL10TA PO
== END 2019-10-12 ==
LOC: M PT 12:52
PROVIDERS: ATTEND Family Medicine
DX: H81.11 Benign paroxysmal vertigo, right ear (principal)

== ENCOUNTER → 2019-11-14 | Outpatient (REF) | payer OTHER ==
[~2019-11-14] MED LIST changes: -COUM7.5T PO; +COUM7.5T6 PO; -METF-791 PO; +METF-838 PO
[2019-11-14 13:21] LABS: BASO # 0.1 10^3/uL (0.0-0.2); EOS # 0.2 10^3/uL (0.0-0.5); HEMATOCRIT 37.1 % (36.0-47.0); HEMOGLOBIN 11.2 g/dl (12.0-15.5); LYMPH # 1.7 10^3/uL (1.5-5.0); LYMPH % 21.2 % (24.0-44.0); MEAN CORPUSCULAR HEMOGLOBIN 25.1 pg (27.0-33.0); MEAN CORPUSCULAR HGB CONC 30.2 g/dl (32.0-36.5); MONO # 0.8 10^3/uL (0.0-0.8); MONO % 9.7 % (0.0-5.0); NEUTROPHILS # 5.3 10^3/uL (1.5-8.5); NEUTROPHILS % 65.9 % (36.0-66.0); PLATELET COUNT, AUTOMATED 401 10^3/uL (150-450); RED BLOOD COUNT 4.47 10^6/uL (4.00-5.40); WHITE BLOOD COUNT 8.1 10^3/uL (4.0-10.0)
== END ==
LOC: M SFHCPLAZ 10:07
PROVIDERS: ATTEND Family Medicine
DX: E53.8 Deficiency of other specified B group vitamins (principal)

== ENCOUNTER → 2020-02-12 | Outpatient (RCR) | payer OTHER ==
[~2020-02-12] MED LIST changes: +PANT40TA29 PO; -PANT40TA3 PO
== END ==
LOC: M PT 02-07 14:52
PROVIDERS: ATTEND Family Medicine
DX: H81.11 Benign paroxysmal vertigo, right ear (principal)

== ENCOUNTER 2020-03-07 17:05 | Emergency (ER) | payer OTHER ==
[~2020-03-07] VITALS: Ht 157.5 cm; Wt 103.8 kg
[2020-03-07 17:05] VITALS: BP 119/76
== END 2020-03-07 19:10 | disposition left against medical advice (07) ==
LOC: M ED 17:05
DX: Z53.21 Procedure and treatment not carried out due to patient leaving prior to being seen by health care provider (principal)

== ENCOUNTER → 2020-05-02 | Outpatient (REF) | payer OTHER ==
[2020-05-02 13:27] LABS: BASO # 0.1 10^3/uL (0.0-0.2); BASO % 0.8 % (0.0-1.0); EOS # 0.2 10^3/uL (0.0-0.5); EOS % 2.5 % (0.0-3.0); HEMATOCRIT 39.4 % (36.0-47.0); HEMOGLOBIN 11.6 g/dl (12.0-15.5); LYMPH # 1.6 10^3/uL (1.5-5.0); MEAN CORPUSCULAR HEMOGLOBIN 23.9 pg (27.0-33.0); MEAN CORPUSCULAR HGB CONC 29.4 g/dl (32.0-36.5); MEAN CORPUSCULAR VOLUME 81.1 fl (80.0-96.0); MONO # 0.7 10^3/uL (0.0-0.8); MONO % 8.6 % (0.0-5.0); NEUTROPHILS # 5.1 10^3/uL (1.5-8.5); NEUTROPHILS % 66.8 % (36.0-66.0); PLATELET COUNT, AUTOMATED 390 10^3/uL (150-450); RED BLOOD COUNT 4.86 10^6/uL (4.00-5.40); WHITE BLOOD COUNT 7.7 10^3/uL (4.0-10.0)
[2020-05-02 14:33] LABS: CHOLESTEROL RISK RATIO 2.125 (<5); FREE T4 1.17 NG/DL (0.76-1.46); THYROID STIMULATING HORMONE 1.19 uIU/ML (0.358-3.740)
[2020-05-02 14:38] LABS: PTH INTACT 74.8 PG/ML (18.5-88.0); TOTAL 25(OH) VITAMIN D 52.5 NG/ML (30.0-100.0)
== END ==
LOC: M SFHCPLAZ 11:06
PROVIDERS: ATTEND Family Medicine
DX: E78.2 Mixed hyperlipidemia (principal); J45.30 Mild persistent asthma, uncomplicated; D50.9 Iron deficiency anemia, unspecified; E53.8 Deficiency of other specified B group vitamins; E11.9 Type 2 diabetes mellitus without complications; E55.9 Vitamin D deficiency, unspecified

== ENCOUNTER 2020-07-17 14:30 | Outpatient (RCR) | payer OTHER | END 2020-08-11 | LOC: M PT 14:30 | PROVIDERS: ATTEND Family Medicine | DX: H81.11 Benign paroxysmal vertigo, right ear (principal) ==

== ENCOUNTER → 2020-08-06 | Outpatient (REF) | payer OTHER ==
[2020-08-06 15:28] LABS: BASO # 0.1 10^3/uL (0.0-0.2); BASO % 0.8 % (0.0-1.0); EOS # 0.3 10^3/uL (0.0-0.5); EOS % 3.7 % (0.0-3.0); HEMATOCRIT 39.3 % (36.0-47.0); HEMOGLOBIN 11.9 g/dl (12.0-15.5); LYMPH # 1.7 10^3/uL (1.5-5.0); MEAN CORPUSCULAR HEMOGLOBIN 25.1 pg (27.0-33.0); MEAN CORPUSCULAR HGB CONC 30.3 g/dl (32.0-36.5); MEAN CORPUSCULAR VOLUME 82.9 fl (80.0-96.0); MONO # 0.6 10^3/uL (0.0-0.8); MONO % 7.8 % (2.0-8.0); NEUTROPHILS % 65.6 % (36.0-66.0); PLATELET COUNT, AUTOMATED 365 10^3/uL (150-450); RED BLOOD COUNT 4.74 10^6/uL (4.00-5.40); WHITE BLOOD COUNT 7.6 10^3/uL (4.0-10.0)
[2020-08-06 15:35] LABS: ALT/SGPT 24 U/L (12-78); BILIRUBIN,TOTAL 0.3 MG/DL (0.2-1.0); BLOOD UREA NITROGEN 19 MG/DL (7-18); C REACTIVE PROTEIN QUANTITATIV 0.84 MG/DL (0.00-0.30); CALCIUM LEVEL 9.6 MG/DL (8.5-10.1); CARBON DIOXIDE LEVEL 29 MEQ/L (21-32); CHLORIDE LEVEL 103 MEQ/L (98-107); CREATININE FOR GFR 0.68 MG/DL (0.55-1.30); GLOMERULAR FILTRATION RATE > 60.0 (>51); GLUCOSE, FASTING 96 MG/DL (70-100); POTASSIUM SERUM 4.6 MEQ/L (3.5-5.1); SODIUM LEVEL 138 MEQ/L (136-145); TOTAL PROTEIN 7.4 GM/DL (6.4-8.2)
[2020-08-06 15:42] LABS: PTH INTACT 61.9 PG/ML (18.5-88.0); TOTAL 25(OH) VITAMIN D 69.1 NG/ML (30.0-100.0)
[2020-08-06 16:06] LABS: MALB URINE SIEMENS 11.7 MG/L; MAU/CREAT RATIO 9.2 MCG/MG (0.0-30.0)
[2020-08-06 16:20] LABS: HEMOGLOBIN A1c 6.1 %
[2020-08-06 20:19] LABS: ERYTHROCYTE SEDIMENTATION RATE 24 mm/hr (0-30)
== END ==
LOC: M PLALAB 12:40
PROVIDERS: ATTEND Family Medicine
DX: D50.9 Iron deficiency anemia, unspecified (principal); E55.9 Vitamin D deficiency, unspecified; M06.9 Rheumatoid arthritis, unspecified; E11.9 Type 2 diabetes mellitus without complications

== ENCOUNTER → 2020-11-25 | Outpatient (CLI) | payer OTHER ==
--- NOTE | 2020-11-25 16:14 | REPMRS ---
Patient History The patient states she has not had a clinical breast exam in over a year. Patient is postmenopausal. No known family history of cancer. Took hormonal contraceptives for 6 years beginning at age 45. Tomosynthesis is performed. Volpara breast density is a. [facility] lifetime risk of breast cancer 10.5%. Patient states no breast complaints today. Patient has signed MRS History Sheet. Digital Woman Screen Mammo: November 25, 2020 - Exam #: [id number] Bilateral CC and MLO view(s) were taken. Technologist: Sharifa Sibley, Technologist Prior study comparison: November 01, 2019, diagnostic bilateral mammo performed at [facility]. June 02, 2018, bilateral digital woman screen mammo performed at [facility]. FINDINGS: There are scattered fibroglandular densities. There has been no change in the appearance of the mammogram from the prior studies. There is a mild amount of residual fibroglandular tissue which is fairly symmetric. There is no interval development of dominant mass, architectural distortion, or clustered microcalcification suggestive of malignancy. Assessment: BI-RADS/ACR category 1 mammogram. Negative Mammogram. Recommendation Routine screening mammogram in 1 year (for women over age 40). This mammogram was interpreted with the aid of an FDA-approved computer-aided dectection system. Electronically Signed By: Olman Maldonado MD 11/25/20 [id number]
--- NOTE | 2020-11-25 16:48 | DEXAMM ---
INDICATION: BORDERLINE OSTEOPENIA. COMPARISON: None. TECHNIQUE: Bone density was measured using dual-energy x-ray absorptiometry (DEXA). FINDINGS: AP SPINE L1-L4 BMD 1.064 g/cm2 Young Adult T-Score -1.1 Age Matched Z-Score -0.3. LT FEMUR, TOTAL BMD 0.849 g/cm2 Young Adult T-Score -1.3 Age Matched Z-Score -0.6. LT NECK BMD 0.740 g/cm2 Young Adult T-Score -2.1 Age Matched Z-Score -1.2. RT FEMUR, TOTAL BMD 0.796 g/cm2 Young Adult T-Score -1.7 Age Matched Z-Score -1.1. RT NECK BMD 0.767 g/cm2 Young Adult T-Score -1.9 Age Matched Z-Score -1.0. IMPRESSION: There is low bone density of the spine. There is low bone density of the left hip. There is low bone density of the right hip. FOLLOW-UP: Recommendation for the next bone density exam: 2 years. <Electronically signed by Olman Maldonado > 11/25/20 [id number]
== END ==
LOC: M WHC 15:14
PROVIDERS: ATTEND Family Medicine
DX: Z12.31 Encounter for screening mammogram for malignant neoplasm of breast (principal); Z78.0 Asymptomatic menopausal state; M85.80 Other specified disorders of bone density and structure, unspecified site

== ENCOUNTER → 2020-12-17 | Outpatient (CLI) | payer OTHER ==
[2020-12-17 10:22] LABS: BASO # 0.1 10^3/uL (0.0-0.2); BASO % 0.8 % (0.0-1.0); EOS # 0.1 10^3/uL (0.0-0.5); EOS % 1.6 % (0.0-3.0); HEMATOCRIT 39.5 % (36.0-47.0); HEMOGLOBIN 12.1 g/dl (12.0-15.5); LYMPH # 1.6 10^3/uL (1.5-5.0); LYMPH % 21.8 % (24.0-44.0); MEAN CORPUSCULAR HEMOGLOBIN 25.6 pg (27.0-33.0); MEAN CORPUSCULAR HGB CONC 30.6 g/dl (32.0-36.5); MEAN CORPUSCULAR VOLUME 83.7 fl (80.0-96.0); MONO # 0.6 10^3/uL (0.0-0.8); MONO % 8.4 % (2.0-8.0); NEUTROPHILS # 4.9 10^3/uL (1.5-8.5); NEUTROPHILS % 67.1 % (36.0-66.0); PLATELET COUNT, AUTOMATED 369 10^3/uL (150-450); RED BLOOD COUNT 4.72 10^6/uL (4.00-5.40); WHITE BLOOD COUNT 7.3 10^3/uL (4.0-10.0)
[2020-12-17 10:45] LABS: CHOLESTEROL RISK RATIO 2.428 (<5)
[2020-12-17 10:52] LABS: MALB URINE SIEMENS 14.9 MG/L; MAU/CREAT RATIO 9.6 MCG/MG (0.0-30.0)
== END ==
LOC: M PLALAB 09:08
PROVIDERS: ATTEND Family Medicine
DX: E55.9 Vitamin D deficiency, unspecified (principal); E11.9 Type 2 diabetes mellitus without complications; E53.8 Deficiency of other specified B group vitamins

== ENCOUNTER → 2020-12-30 | Outpatient (REF) | payer OTHER | LOC: M SFHCWAGY 18:30 | PROVIDERS: ATTEND Nurse Practitioner Women's Health | DX: Z12.4 Encounter for screening for malignant neoplasm of cervix (principal) ==

== ENCOUNTER 2021-01-23 14:38 | Outpatient (RCR) | payer OTHER | END 2021-02-11 | LOC: M PT 14:38 | PROVIDERS: ATTEND Family Medicine | DX: R42 Dizziness and giddiness (principal) ==

== ENCOUNTER → 2021-03-19 | Outpatient (REF) | payer OTHER | LOC: M LAB REF 16:18 | PROVIDERS: ATTEND Physician Assistant | DX: R05.9 Cough, unspecified (principal) ==

== ENCOUNTER 2021-05-06 09:15 | Outpatient (RCR) | payer OTHER | END 2021-05-13 | LOC: M PT 09:15 | PROVIDERS: ATTEND Family Medicine | DX: H81.11 Benign paroxysmal vertigo, right ear (principal) ==

== ENCOUNTER 2021-06-04 12:33 | Outpatient (RCR) | payer OTHER | END 2021-06-13 | LOC: M PT 12:33 | PROVIDERS: ATTEND Family Medicine | DX: H81.11 Benign paroxysmal vertigo, right ear (principal) ==

== ENCOUNTER 2021-07-04 14:15 | Outpatient (RCR) | payer OTHER | END 2021-07-14 | LOC: M PT 14:15 | PROVIDERS: ATTEND Family Medicine | DX: R42 Dizziness and giddiness (principal) ==

== ENCOUNTER → 2021-08-04 | Outpatient (CLI) | payer OTHER ==
[2021-08-04 15:21] LABS: BASO # 0.1 10^3/uL (0.0-0.2); BASO % 1.2 % (0.0-1.0); EOS # 0.2 10^3/uL (0.0-0.5); EOS % 2.6 % (0.0-3.0); HEMATOCRIT 40.9 % (36.0-47.0); HEMOGLOBIN 12.4 g/dl (12.0-15.5); LYMPH # 1.4 10^3/uL (1.5-5.0); LYMPH % 20.2 % (24.0-44.0); MEAN CORPUSCULAR HEMOGLOBIN 26.1 pg (27.0-33.0); MEAN CORPUSCULAR HGB CONC 30.3 g/dl (32.0-36.5); MEAN CORPUSCULAR VOLUME 86.1 fl (80.0-96.0); MONO # 0.5 10^3/uL (0.0-0.8); MONO % 7.7 % (2.0-8.0); NEUTROPHILS # 4.7 10^3/uL (1.5-8.5); PLATELET COUNT, AUTOMATED 331 10^3/uL (150-450); RED BLOOD COUNT 4.75 10^6/uL (4.00-5.40); WHITE BLOOD COUNT 6.9 10^3/uL (4.0-10.0)
[2021-08-04 15:47] LABS: HEMOGLOBIN A1c 5.9 %
[2021-08-04 15:53] LABS: ERYTHROCYTE SEDIMENTATION RATE 16 mm/hr (0-30)
[2021-08-04 15:59] LABS: ALBUMIN 3.6 GM/DL (3.2-5.2); ALT/SGPT 23 U/L (12-78); BILIRUBIN,TOTAL 0.3 MG/DL (0.2-1.0); BLOOD UREA NITROGEN 16 MG/DL (7-18); C REACTIVE PROTEIN QUANTITATIV 0.66 MG/DL (0.00-0.30); CARBON DIOXIDE LEVEL 26 MEQ/L (21-32); CHLORIDE LEVEL 106 MEQ/L (98-107); CREATININE FOR GFR 0.62 MG/DL (0.55-1.30); FERRITIN 6 NG/ML (8-252); GLOMERULAR FILTRATION RATE > 60.0 (>51); GLUCOSE, FASTING 99 MG/DL (70-100); POTASSIUM SERUM 4.5 MEQ/L (3.5-5.1); SODIUM LEVEL 138 MEQ/L (136-145)
== END ==
LOC: M PLALAB 11:10
PROVIDERS: ATTEND Family Medicine
DX: E11.9 Type 2 diabetes mellitus without complications (principal); D50.9 Iron deficiency anemia, unspecified; M06.9 Rheumatoid arthritis, unspecified

== ENCOUNTER → 2021-09-17 | Outpatient (REF) | payer OTHER | LOC: M LAB REF 21:10 | PROVIDERS: ATTEND Physician Assistant | DX: R05.9 Cough, unspecified (principal); R53.83 Other fatigue; R09.89 Other specified symptoms and signs involving the circulatory and respiratory systems ==

== ENCOUNTER 2021-11-05 10:44 | Outpatient (RCR) | payer OTHER ==
[~2021-11-05 10:44] MED LIST changes: +ALBU2.5V10 INH; -ALBU83IN INH
== END 2021-11-11 ==
LOC: M PT 10:44
PROVIDERS: ATTEND Family Medicine
DX: H81.11 Benign paroxysmal vertigo, right ear (principal)

== ENCOUNTER 2021-11-24 09:15 | Outpatient (RCR) | payer OTHER | END 2021-12-11 | LOC: M PT 09:15 | PROVIDERS: ATTEND Family Medicine | DX: H81.90 Unspecified disorder of vestibular function, unspecified ear (principal) ==

== ENCOUNTER → 2021-12-03 | Outpatient (CLI) | payer OTHER | LOC: M WHC 16:13 | PROVIDERS: ATTEND Family Medicine | DX: Z12.31 Encounter for screening mammogram for malignant neoplasm of breast (principal); Z92.0 Personal history of contraception ==

== ENCOUNTER → 2022-01-18 | Outpatient (CLI) | payer OTHER ==
[2022-01-18 12:54] LABS: ALBUMIN 3.5 GM/DL (3.2-5.2); ALT/SGPT 19 U/L (12-78); BILIRUBIN,TOTAL 0.2 MG/DL (0.2-1.0); BLOOD UREA NITROGEN 15 MG/DL (7-18); CALCIUM LEVEL 9.2 MG/DL (8.5-10.1); CARBON DIOXIDE LEVEL 28 MEQ/L (21-32); CHLORIDE LEVEL 107 MEQ/L (98-107); CHOLESTEROL LEVEL 159 MG/DL (<200); CHOLESTEROL RISK RATIO 2.523 (<5); GLOMERULAR FILTRATION RATE > 60.0 (>51); GLUCOSE, FASTING 100 MG/DL (70-100); HDL CHOLESTEROL 63 MG/DL (>40); LDL CHOLESTEROL 81 MG/DL (<100); NON-HDL-C 96 MG/DL; POTASSIUM SERUM 4.2 MEQ/L (3.5-5.1); SODIUM LEVEL 140 MEQ/L (136-145); TOTAL PROTEIN 6.7 GM/DL (6.4-8.2); TRIGLYCERIDES LEVEL 75 MG/DL (<150)
[2022-01-18 13:01] LABS: MALB URINE SIEMENS 12.7 MG/L; MAU/CREAT RATIO 9.9 MCG/MG (0.0-30.0)
[2022-01-19 12:29] LABS: PTH INTACT 67.4 PG/ML (18.5-88.0)
== END ==
LOC: M LAB 11:41
PROVIDERS: ATTEND Family Medicine
DX: E78.2 Mixed hyperlipidemia (principal); E55.9 Vitamin D deficiency, unspecified; E11.9 Type 2 diabetes mellitus without complications

== ENCOUNTER → 2022-02-17 | Outpatient (CLI) | payer OTHER | LOC: M WHC 11:05 | PROVIDERS: ATTEND Physician Assistant | DX: K76.0 Fatty (change of) liver, not elsewhere classified (principal); R10.9 Unspecified abdominal pain; R19.7 Diarrhea, unspecified ==

== ENCOUNTER → 2022-02-17 | Outpatient (CLI) | payer OTHER ==
[2022-02-17 14:32] LABS: BASO # 0.1 10^3/uL (0.0-0.2); BASO % 1.2 % (0.0-1.0); EOS # 0.2 10^3/uL (0.0-0.5); EOS % 3.2 % (0.0-3.0); HEMOGLOBIN 11.9 g/dl (12.0-15.5); LYMPH # 1.5 10^3/uL (1.5-5.0); LYMPH % 22.3 % (24.0-44.0); MEAN CORPUSCULAR HEMOGLOBIN 25.9 pg (27.0-33.0); MEAN CORPUSCULAR HGB CONC 30.5 g/dl (32.0-36.5); MONO # 0.6 10^3/uL (0.0-0.8); NEUTROPHILS # 4.5 10^3/uL (1.5-8.5); NEUTROPHILS % 65.2 % (36.0-66.0); PLATELET COUNT, AUTOMATED 411 10^3/uL (150-450); RED BLOOD COUNT 4.59 10^6/uL (4.00-5.40); WHITE BLOOD COUNT 6.9 10^3/uL (4.0-10.0)
[2022-02-17 15:03] LABS: ALBUMIN 3.5 GM/DL (3.2-5.2); ALT/SGPT 23 U/L (12-78); BILIRUBIN,TOTAL 0.3 MG/DL (0.2-1.0); BLOOD UREA NITROGEN 17 MG/DL (7-18); C REACTIVE PROTEIN QUANTITATIV 0.88 MG/DL (0.00-0.30); CALCIUM LEVEL 9.2 MG/DL (8.5-10.1); CARBON DIOXIDE LEVEL 30 MEQ/L (21-32); CHLORIDE LEVEL 107 MEQ/L (98-107); CREATININE FOR GFR 0.64 MG/DL (0.55-1.30); GLOMERULAR FILTRATION RATE > 60.0 (>51); GLUCOSE, FASTING 90 MG/DL (70-100); LIPASE 106 U/L (73-393); POTASSIUM SERUM 3.8 MEQ/L (3.5-5.1); SODIUM LEVEL 140 MEQ/L (136-145); TOTAL PROTEIN 6.8 GM/DL (6.4-8.2)
[2022-02-17 15:47] LABS: ERYTHROCYTE SEDIMENTATION RATE 25 mm/hr (0-30)
== END ==
LOC: M PLALAB 11:43
PROVIDERS: ATTEND Physician Assistant
DX: R10.9 Unspecified abdominal pain (principal); R19.7 Diarrhea, unspecified; R05.1 Acute cough

== ENCOUNTER → 2022-02-25 | Outpatient (CLI) | payer OTHER | LOC: M RAD 07:56 | PROVIDERS: ATTEND Physician Assistant | DX: R10.9 Unspecified abdominal pain (principal); R19.7 Diarrhea, unspecified | CPT/HCPCS: 78227; A9537 ==

== ENCOUNTER → 2022-03-05 | Outpatient (CLI) | payer OTHER ==
[2022-03-05 13:22] LABS: BASO # 0.1 10^3/uL (0.0-0.2); BASO % 1.3 % (0.0-1.0); EOS # 0.2 10^3/uL (0.0-0.5); EOS % 2.5 % (0.0-3.0); HEMATOCRIT 38.9 % (36.0-47.0); HEMOGLOBIN 11.9 g/dl (12.0-15.5); LYMPH # 1.5 10^3/uL (1.5-5.0); LYMPH % 25.2 % (24.0-44.0); MEAN CORPUSCULAR HEMOGLOBIN 25.9 pg (27.0-33.0); MEAN CORPUSCULAR HGB CONC 30.6 g/dl (32.0-36.5); MEAN CORPUSCULAR VOLUME 84.6 fl (80.0-96.0); MONO # 0.6 10^3/uL (0.0-0.8); MONO % 9.6 % (2.0-8.0); NEUTROPHILS # 3.7 10^3/uL (1.5-8.5); NEUTROPHILS % 61.1 % (36.0-66.0); PLATELET COUNT, AUTOMATED 378 10^3/uL (150-450); WHITE BLOOD COUNT 6.1 10^3/uL (4.0-10.0)
[2022-03-05 14:19] LABS: ALBUMIN 3.6 GM/DL (3.2-5.2); ALT/SGPT 22 U/L (12-78); BILIRUBIN,TOTAL 0.3 MG/DL (0.2-1.0); BLOOD UREA NITROGEN 16 MG/DL (7-18); C REACTIVE PROTEIN QUANTITATIV 0.81 MG/DL (0.00-0.30); CALCIUM LEVEL 9.4 MG/DL (8.5-10.1); CARBON DIOXIDE LEVEL 29 MEQ/L (21-32); CHLORIDE LEVEL 105 MEQ/L (98-107); CREATININE FOR GFR 0.71 MG/DL (0.55-1.30); GLOMERULAR FILTRATION RATE > 60.0 (>51); GLUCOSE, FASTING 83 MG/DL (70-100); LIPASE 110 U/L (73-393); POTASSIUM SERUM 3.9 MEQ/L (3.5-5.1); SODIUM LEVEL 138 MEQ/L (136-145)
[2022-03-05 14:38] LABS: ERYTHROCYTE SEDIMENTATION RATE 18 mm/hr (0-30)
== END ==
LOC: M LAB 12:48
PROVIDERS: ATTEND Physician Assistant
DX: R10.13 Epigastric pain (principal); R63.4 Abnormal weight loss; R19.7 Diarrhea, unspecified; R11.0 Nausea

== ENCOUNTER → 2022-03-06 | Outpatient (REF) | payer OTHER | LOC: M SFHCPLAZ 09:53 | PROVIDERS: ATTEND Physician Assistant | DX: R19.7 Diarrhea, unspecified (principal) ==

== ENCOUNTER → 2022-03-18 | Outpatient (CLI) | payer OTHER ==
[~2022-03-18] MED LIST changes: +GASTROGRAFIN SOLUTION 30ML (Q9963) As Ordered ONE; +ISOVUE-370 76% 100ML VIAL As Ordered ONE
== END ==
LOC: M RAD 12:06
PROVIDERS: ATTEND Physician Assistant
DX: K76.0 Fatty (change of) liver, not elsewhere classified (principal); R10.13 Epigastric pain; R63.4 Abnormal weight loss; R19.7 Diarrhea, unspecified; R11.0 Nausea
CPT/HCPCS: 74177; Q9963; Q9967

== ENCOUNTER → 2022-04-24 | Outpatient (CLI) | payer OTHER ==
[~2022-04-24] MED LIST changes: -GASTROGRAFIN SOLUTION 30ML (Q9963) As Ordered ONE; -ISOVUE-370 76% 100ML VIAL As Ordered ONE
[2022-04-24 12:11] LABS: BASO # 0.1 10^3/uL (0.0-0.2); BASO % 1.2 % (0.0-1.0); EOS # 0.2 10^3/uL (0.0-0.5); EOS % 2.6 % (0.0-3.0); HEMATOCRIT 39.9 % (36.0-47.0); HEMOGLOBIN 12.1 g/dl (12.0-15.5); LYMPH # 1.4 10^3/uL (1.5-5.0); LYMPH % 20.7 % (24.0-44.0); MEAN CORPUSCULAR HGB CONC 30.3 g/dl (32.0-36.5); MEAN CORPUSCULAR VOLUME 85.8 fl (80.0-96.0); MONO # 0.6 10^3/uL (0.0-0.8); MONO % 8.2 % (2.0-8.0); NEUTROPHILS # 4.6 10^3/uL (1.5-8.5); NEUTROPHILS % 67.2 % (36.0-66.0); PLATELET COUNT, AUTOMATED 343 10^3/uL (150-450); RED BLOOD COUNT 4.65 10^6/uL (4.00-5.40); WHITE BLOOD COUNT 6.9 10^3/uL (4.0-10.0)
[2022-04-24 13:08] LABS: ALBUMIN 3.7 GM/DL (3.2-5.2); ALT/SGPT 23 U/L (12-78); BILIRUBIN,TOTAL 0.4 MG/DL (0.2-1.0); BLOOD UREA NITROGEN 17 MG/DL (7-18); CALCIUM LEVEL 9.4 MG/DL (8.5-10.1); CARBON DIOXIDE LEVEL 28 MEQ/L (21-32); CHLORIDE LEVEL 104 MEQ/L (98-107); CHOLESTEROL LEVEL 142 MG/DL (<200); CHOLESTEROL RISK RATIO 1.972 (<5); CREATININE FOR GFR 0.66 MG/DL (0.55-1.30); FERRITIN 8 NG/ML (8-252); GLOMERULAR FILTRATION RATE > 60.0 (>51); GLUCOSE, FASTING 104 MG/DL (70-100); HDL CHOLESTEROL 72 MG/DL (>40); LDL CHOLESTEROL 57 MG/DL (<100); NON-HDL-C 70 MG/DL; POTASSIUM SERUM 4.4 MEQ/L (3.5-5.1); SODIUM LEVEL 138 MEQ/L (136-145); TRIGLYCERIDES LEVEL 66 MG/DL (<150)
[2022-04-24 13:54] LABS: VITAMIN B12 LEVEL 841 PG/ML (247-911)
[2022-04-25 08:09] LABS: APOLIPOPROTEIN B/A-1 RATIO 0.4 ratio (0.0-0.6)
== END ==
LOC: M LAB 10:55
PROVIDERS: ATTEND Family Medicine
DX: E78.2 Mixed hyperlipidemia (principal); D50.9 Iron deficiency anemia, unspecified; E53.8 Deficiency of other specified B group vitamins

== ENCOUNTER → 2022-08-03 | Outpatient (CLI) | payer OTHER ==
[2022-08-03 13:02] LABS: BASO # 0.1 10^3/uL (0.0-0.2); BASO % 1.1 % (0.0-1.0); EOS # 0.1 10^3/uL (0.0-0.5); EOS % 2.2 % (0.0-3.0); HEMATOCRIT 41.3 % (36.0-47.0); HEMOGLOBIN 12.8 g/dl (12.0-15.5); LYMPH # 1.4 10^3/uL (1.5-5.0); LYMPH % 21.1 % (24.0-44.0); MEAN CORPUSCULAR HEMOGLOBIN 26.4 pg (27.0-33.0); MEAN CORPUSCULAR VOLUME 85.2 fl (80.0-96.0); MONO # 0.5 10^3/uL (0.0-0.8); MONO % 7.2 % (2.0-8.0); NEUTROPHILS # 4.4 10^3/uL (1.5-8.5); NEUTROPHILS % 68.2 % (36.0-66.0); PLATELET COUNT, AUTOMATED 361 10^3/uL (150-450); RED BLOOD COUNT 4.85 10^6/uL (4.00-5.40); WHITE BLOOD COUNT 6.4 10^3/uL (4.0-10.0)
[2022-08-03 13:27] LABS: HEMOGLOBIN A1c 5.8 % (4.0-6.0)
[2022-08-03 13:33] LABS: ALBUMIN 3.6 G/DL (3.2-5.2); ALKALINE PHOSPHATASE 132 U/L (46-116); ALT/SGPT 17 U/L (7.0-40); AST/SGOT 18 U/L (<34); BILIRUBIN,TOTAL 0.5 MG/DL (0.3-1.2); BLOOD UREA NITROGEN 18 MG/DL (9-23); CALCIUM LEVEL 9.8 MG/DL (8.5-10.1); CARBON DIOXIDE LEVEL 29 MMOL/L (20-31); CHLORIDE LEVEL 104 MMOL/L (98-107); CREATININE FOR GFR 0.61 MG/DL (0.55-1.30); FERRITIN 4.3 NG/ML (7.3-270.7); GLOMERULAR FILTRATION RATE > 60.0 (>51); GLUCOSE, FASTING 99 MG/DL (60-100); POTASSIUM SERUM 4.2 MMOL/L (3.5-5.1); SODIUM LEVEL 139 MMOL/L (136-145); TOTAL PROTEIN 6.7 G/DL (5.7-8.2)
[2022-08-04 21:07] LABS: H PYLORI SERUM QUANT IgG ABY 0.45 (0.00-0.79); INSULIN LEVEL 8.9 uIU/mL (2.6-24.9)
== END ==
LOC: M LAB 11:31
PROVIDERS: ATTEND Family Medicine
DX: K76.0 Fatty (change of) liver, not elsewhere classified (principal); R10.13 Epigastric pain; E11.9 Type 2 diabetes mellitus without complications

== ENCOUNTER 2022-08-21 09:05 | Outpatient (CLI) | payer OTHER ==
[2022-08-21 09:05] VITALS: BP 115/62
[~2022-08-21 09:05] MED LIST changes: +ALBUTEROL SULFATE 2.5MG/0.5ML INH NEB SOLN INH PRN; +EPINEPHrine INJ 1 MG/ML 1ML AMP IM PRN; +IRON SUCROSE 500 MG in NS 250 ML OVER 4 HRS IV ONE; +MONT-5 PO; +NS 1,000 ML IV SCH; -SING10TA32 PO; +diphenhydrAMINE 50MG/ML VIAL IV PRN; +methylPREDNISolone 125MG 2ML VIAL IV PRN
[2022-08-21 11:00] VITALS: BP 120/68
[2022-08-21 12:00] VITALS: BP 113/71
[2022-08-21 13:00] VITALS: BP 120/74
[2022-08-21 14:00] VITALS: BP 119/63
== END 2022-08-21 14:00 | disposition home or self-care (01) ==
LOC: M INFU 09:05
PROVIDERS: ATTEND Family Medicine
DX: D50.9 Iron deficiency anemia, unspecified (principal); Z88.0 Allergy status to penicillin; Z88.1 Allergy status to other antibiotic agents
CPT/HCPCS: 96365; 96366; J1756

== ENCOUNTER 2022-08-28 08:45 | Outpatient (CLI) | payer OTHER ==
[2022-08-28 08:45] VITALS: BP 126/85
[~2022-08-28 08:45] MED LIST changes: -IRON SUCROSE 500 MG in NS 250 ML OVER 4 HRS IV ONE; -NS 1,000 ML IV SCH
[2022-08-28] MEDS ORDERED: NS 1,000 ML IV SCH (09:00)
[2022-08-28] MEDS ORDERED: IRON SUCROSE 500 MG in NS 250 ML OVER 4 HRS IV ONE (09:00)
[2022-08-28 10:00] VITALS: BP 122/79
[2022-08-28 11:00] VITALS: BP 133/71
[2022-08-28 12:00] VITALS: BP 125/77
[2022-08-28 13:45] VITALS: BP 123/60
== END 2022-08-28 13:45 | disposition home or self-care (01) ==
LOC: M INFU 08:45
PROVIDERS: ATTEND Family Medicine
DX: D50.9 Iron deficiency anemia, unspecified (principal); Z88.0 Allergy status to penicillin; Z88.1 Allergy status to other antibiotic agents; Z88.2 Allergy status to sulfonamides
CPT/HCPCS: 96365; 96366; J1756

== ENCOUNTER → 2023-01-04 | Outpatient (REF) | payer OTHER ==
[~2023-01-04] MED LIST changes: -ALBUTEROL SULFATE 2.5MG/0.5ML INH NEB SOLN INH PRN; -EPINEPHrine INJ 1 MG/ML 1ML AMP IM PRN; -diphenhydrAMINE 50MG/ML VIAL IV PRN; -methylPREDNISolone 125MG 2ML VIAL IV PRN
== END ==
LOC: M SFHCPLAZ 19:03
PROVIDERS: ATTEND Family Medicine
DX: M06.9 Rheumatoid arthritis, unspecified (principal); Z53.9 Procedure and treatment not carried out, unspecified reason

== ENCOUNTER → 2023-07-14 | Outpatient (CLI) | payer OTHER ==
[2023-07-14 18:32] LABS: INR 0.96; PROTHROMBIN TIME 12.5 SECONDS (12.5-14.5)
[2023-07-14 18:33] LABS: PARTIAL THROMBOPLASTIN TIME 25.9 SECONDS (24.8-34.2)
[2023-07-14 18:41] LABS: ALBUMIN 3.8 G/DL (3.2-5.2); BLOOD UREA NITROGEN 19 MG/DL (9-23); CALCIUM LEVEL 9.7 MG/DL (8.5-10.1); CARBON DIOXIDE LEVEL 29 MMOL/L (20-31); CHLORIDE LEVEL 109 MMOL/L (98-107); CREATININE FOR GFR 0.62 MG/DL (0.55-1.30); GLOMERULAR FILTRATION RATE > 60.0 (>51); GLUCOSE, FASTING 92 MG/DL (60-100); PHOSPHORUS LEVEL 4.1 MG/DL (2.5-4.9); POTASSIUM SERUM 4.3 MMOL/L (3.5-5.1); SODIUM LEVEL 139 MMOL/L (136-145)
[2023-07-14 18:42] LABS: PTH INTACT 45.2 PG/ML (18.5-88.0)
[2023-07-14 18:43] LABS: TOTAL 25(OH) VITAMIN D 82.3 NG/ML (20.0-100.0)
[2023-07-14 19:34] LABS: HEMOGLOBIN A1c 5.4 % (4.0-6.0)
== END ==
LOC: M LAB 17:38
PROVIDERS: ATTEND Family Medicine
DX: E11.9 Type 2 diabetes mellitus without complications (principal)

== ENCOUNTER → 2023-12-23 | Outpatient (REF) | payer OTHER | LOC: M SFHCPLAZ 19:48 | PROVIDERS: ATTEND Family Medicine | DX: M06.9 Rheumatoid arthritis, unspecified (principal); D50.9 Iron deficiency anemia, unspecified; E11.9 Type 2 diabetes mellitus without complications; E78.2 Mixed hyperlipidemia ==

== ENCOUNTER → 2024-03-06 | Outpatient (CLI) | payer OTHER ==
[2024-03-06 15:20] LABS: BASO # 0.1 10^3/uL (0.0-0.2); BASO % 0.8 % (0.0-1.0); EOS # 0.2 10^3/uL (0.0-0.5); EOS % 2.2 % (0.0-3.0); HEMATOCRIT 42.7 % (36.0-47.0); HEMOGLOBIN 14.1 g/dl (12.0-15.5); LYMPH # 1.4 10^3/uL (1.5-5.0); LYMPH % 18.8 % (24.0-44.0); MEAN CORPUSCULAR HEMOGLOBIN 29.4 pg (27.0-33.0); MEAN CORPUSCULAR VOLUME 89.1 fl (80.0-96.0); MONO # 0.5 10^3/uL (0.0-0.8); MONO % 6.7 % (2.0-8.0); NEUTROPHILS # 5.3 10^3/uL (1.5-8.5); NEUTROPHILS % 71.4 % (36.0-66.0); PLATELET COUNT, AUTOMATED 313 10^3/uL (150-450); RED BLOOD COUNT 4.79 10^6/uL (4.00-5.40); WHITE BLOOD COUNT 7.4 10^3/uL (4.0-10.0)
[2024-03-06 15:28] LABS: ERYTHROCYTE SEDIMENTATION RATE 17 mm/hr (0-30)
[2024-03-06 15:49] LABS: C REACTIVE PROTEIN QUANTITATIV 0.8 MG/DL (<1.0)
[2024-03-06 15:56] LABS: CHOLESTEROL RISK RATIO 2.57 (<5); FERRITIN 44.1 NG/ML (7.3-270.7); FREE T4 1.29 NG/DL (0.89-1.76); HDL CHOLESTEROL 58.2 MG/DL (>40); LDL CHOLESTEROL 69.2 MG/DL (<100); NON-HDL-C 91.8 MG/DL; THYROID STIMULATING HORMONE 1.638 uIU/ML (0.55-4.78)
[2024-03-06 16:13] LABS: HEMOGLOBIN A1c 5.5 % (4.0-6.0)
== END ==
LOC: M LAB 13:53
PROVIDERS: ATTEND Family Medicine
DX: M06.9 Rheumatoid arthritis, unspecified (principal); D50.9 Iron deficiency anemia, unspecified; E11.9 Type 2 diabetes mellitus without complications; E78.2 Mixed hyperlipidemia

== ENCOUNTER → 2024-03-07 | Outpatient (CLI) | payer OTHER | LOC: M WHC 13:06 | PROVIDERS: ATTEND Family Medicine | DX: Z12.31 Encounter for screening mammogram for malignant neoplasm of breast (principal) ==

== ENCOUNTER → 2024-03-07 | Outpatient (REF) | payer OTHER | LOC: M SFHCPLAZ 09:54 | PROVIDERS: ATTEND Family Medicine | DX: M06.9 Rheumatoid arthritis, unspecified (principal); D50.9 Iron deficiency anemia, unspecified; E11.9 Type 2 diabetes mellitus without complications; E55.9 Vitamin D deficiency, unspecified ==